=== PATIENT | female | born 1985 | race Caucasian/White ===

== ENCOUNTER 2025-06-21 11:12 | Inpatient (IN) | payer MEDICAID, SELFPAY ==
[2025-06-21] VITALS (12 sets, daily range): BP systolic 111–150; BP diastolic 72–96; PULSE 92–114; RESP 12–38; TEMP 36.7–37.1; O2SAT 90–100; BMI 32.1
--- NOTE | 2025-06-21 11:15 | PC.NURSE ---
SOB, UNABLE TO SPEAK IN FULL SENTENCES. HX OF PULMONARY HTN AND CHF. 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
--- NOTE | 2025-06-21 11:56 | EKG_ITS ---
[facility] Test Date: 2025-06-21 Pat Name: BELKIS COOK Department: Room: - Gender: Female Access Spec: : [id number] Requested By: Thomas Shine Order Number: [id number] Reading MD: Thomas Shine Measurements Intervals [place] Rate: 114 P: 82 [place]: 153 QRS: 108 QRSD: 109 T: 39 QT: 340 QTc: 470 Interpretive Statements SINUS TACHYCARDIA RIGHT ATRIAL ENLARGEMENT [0.3mV P-WAVE] POSSIBLE LEFT ATRIAL ENLARGEMENT [-0.1mV P-WAVE IN V1/V2] INCOMPLETE RIGHT BUNDLE BRANCH BLOCK [90+ ms QRS DURATION, TERMINAL R IN V1/V2, 40+ ms S IN I/aVL/V4/V5/V6] RIGHT VENTRICULAR HYPERTROPHY [SOME/ALL OF: PROMINENT R IN V1, LATE TRANSITION, RAD, CHASE, SSS] ST DEVIATION AND MODERATE T-WAVE ABNORMALITY, CONSIDER ANTEROLATERAL ISCHEMIA [-0.1+ mV T-WAVE IN V3-V6] Compared to ECG 06/12/2023 10:33:33 T-wave abnormality now present Possible ischemia now present Sinus rhythm no longer present ST (T wave) deviation no longer present /store/S0/[id number]/[id number].pdf
--- NOTE | 2025-06-21 11:56 | XR_ITS ---
EXAMINATION: AP chest single view TECHNIQUE: AP portable semiupright chest single view Date and time: June 21, 2025, 1240 hours, comparison June 12, 2023 INDICATIONS: Chest pain shortness of breath 4 weeks. FINDINGS: Significant pneumonia in the right lower lung zone Mild enlargement cardiac contour Central pulmonary arteries appear prominent Moderate osteopenia IMPRESSION: Right lower lung zone pneumonia Suspicious for pulmonary artery hypertension
--- NOTE | 2025-06-21 11:57 | PD.EDRME ---
Rapid Medical Screening Exam RME Arrival date/time: 06/21/25 11:12 40-year-old female with a history of CHF, pulmonary hypertension, presents to the emergency room with a chief complaint of shortness of breath and difficulty breathing x 3 days I have greeted and performed a focused initial assessment of this patient. A comprehensive ED assessment and evaluation of the patient, analysis of all test results, and completion of the medical decision making process will be conducted by additional ED providers. Chief Complaint: Shortness of Breath/Dyspnea Time Seen by Provider: 06/21/25 11:36 Vital signs reviewed by provider: Yes Exam: Strong and regular rhythm S1 and S2 GCS 15 Diminished lung sounds bilaterally Clinical Impression: Community-acquired pneumonia/CHF exacerbation/URI
[2025-06-21] MEDS: ALBUTEROL/IPRATROPIUM (Duoneb) RT SOL 3 ML NEBU INH ×2 (12:31→22:03)
[2025-06-21] MEDS: FUROSEMIDE INJ 10 MG/ML 4ML VIAL 40 MG IVP ×2 (12:48→21:22)
[2025-06-21] MEDS: DOXYCYCLINE INJ 100 MG in SODIUM CHLORIDE 0.9% (POP) 100 ML IV ×2 (13:00→21:22)
[2025-06-21] MEDS: cefTRIAXone 2 GM in SODIUM CHLORIDE 0.9% (Popper) 50 ML IV (13:00)
[2025-06-21 13:06] LABS: Basophils # (Auto) 0.0 Thou/mm3 (0.0-0.2); Basophils % (Auto) 0 % (0-2.5); Eosinophils # (Auto) 0.4 Thou/mm3 (0.0-0.5); Eosinophils % (Auto) 5 % (0-10); Hematocrit 39.2 % (36.0-46.0); Hemoglobin 13.2 g/dL (12.0-16.0); Immature Granulocytes Auto 0.03 Thou/mm3 (0.00-0.00); Lymphocytes # (Auto) 1.9 Thou/mm3 (1.0-4.8); Lymphocytes % (Auto) 21 % (10-50); Mean Corpuscular HGB Conc 33.7 g/dl (31.0-37.0); Mean Corpuscular Hemoglobin 32.2 pg (25.0-35.0); Mean Corpuscular Volume 96 fL (80-100); Monocytes # (Auto) 0.7 Thou/mm3 (0.0-0.8); Monocytes % (Auto) 7 % (0-12); Neutrophils # (Auto) 6.1 Thou/mm3 (1.8-7.7); Neutrophils % (Auto) 67 % (37-80); Nucleated Red Blood Cell # 0.00 Thou/mm3 (0.00-0.00); Nucleated Red Blood Cell % 0 /100 WBC (0); Platelet Count 168 Thou/mm3 (140-440); RDW Standard Deviation 48.7 fL (36.4-46.3); Red Blood Count 4.10 Miln/mm3 (4.00-5.20); White Blood Count 9.2 Thou/mm3 (3.6-11.0)
[2025-06-21 13:26] LABS: INR 1.0 (0.9-1.3); Partial Thromboplastin Time 26.6 Seconds (22.0-36.0); Prothrombin Time 10.8 Seconds (9.0-12.2)
[2025-06-21 13:34] LABS: B-Type Natriuretic Peptide 402 pg/mL (0-100)
[2025-06-21 13:35] LABS: Alanine Aminotransferase 12 U/L (10-49); Albumin, Serum 4.4 gm/dL (3.5-5.0); Albumin/Globulin Ratio 1.7 (1.2-2.2); Alkaline Phosphatase 56 U/L (46-116); Anion Gap 12 (7-16); Aspartate Amino Transferase 16 U/L (0-34); BUN/Creatinine Ratio 10 Ratio (12-20); Bilirubin,Total 0.3 mg/dL (0.3-1.2); Blood Urea Nitrogen 12 mg/dL (9-23); Calcium 9.3 mg/dL (8.3-10.6); Calcium (Corrected) 9.3 mg/dL (8.5-10.1); Carbon Dioxide 27.4 mMol/L (20.0-31.0); Chloride 107 mMol/L (98-107); Creatinine (Component) 1.2 mg/dL (0.6-1.3); Free T4 (Free Thyroxine) 1.22 ng/dL (0.89-1.76); Globulin 2.6 gm/dL (2.3-3.5); Glucose 101 mg/dL (74-106); Magnesium 1.8 mg/dL (1.6-2.6); Osmolality,Calculated 290 (275-295); Potassium 3.4 mMol/L (3.4-5.1); Sodium 146 mMol/L (136-145); Thyroid Stimulating Hormone 0.75 uIU/mL (0.55-4.78); Total Protein 7.0 gm/dL (5.7-8.2); eGFR 58 See Note
[2025-06-21 13:36] LABS: Troponin I 0.227 ng/mL (0.0-0.045)
[2025-06-21 13:42] LABS: Collection Type, Urine Clean Catch
[2025-06-21 13:55] LABS: Bacteria,Urine Rare; Bilirubin,Urine Negative (Negative); Blood,Urine 1+ (Negative); Clarity,Urine Clear (Clear/Hazy); Color,Urine Yellow (Lt Yel-Yel); Culture Indicated,Urine Not Indicated; Glucose, Urine Negative (Negative); Ketones,Urine Negative (Negative); Leukocyte Esterase,Urine Negative (Negative); Nitrite,Urine Negative (Negative); PH,Urine 6.0 (5.0-7.0); Protein,Urine Negative (Neg - Trace); RBC,Urine 1 /hpf (0-3); Specific Gravity,Urine 1.022 (1.001-1.035); Squamous Epithelial Cell,Urine 5 /hpf (0-5); Urobilinogen,Urine 2.0 mg/dL (0.0-1.0); WBC,Urine 2 /hpf (0-5)
[2025-06-21 14:07] LABS: Amphetamine/Methamp Scrn,U Positive (Negative); Barbiturate Screen,Urine Negative (Negative); Benzodiazepines Screen,Urine Negative (Negative); Benzoylecgonine Screen, Ur Negative (Negative); Fentanyl Screen,Urine Negative (Negative); Opiate Screen,Urine Negative (Negative); THC Screen,Urine Negative (Negative)
--- NOTE | 2025-06-21 14:19 | EDNOTE_ITS ---
ED SOB =RME/HPI General Chief Complaint: Shortness of Breath/Dyspnea Stated Complaint: SOB Time Seen by Provider: 06/21/25 11:36 Arrival date/time: 06/21/25 11:12 Limitations: no limitations RME / HPI RME / HPI Narrative: 06/21/25 11:12 40-year-old female with a history of CHF, pulmonary hypertension, presents to the emergency room with a chief complaint of shortness of breath and difficulty breathing x 3 days I have greeted and performed a focused initial assessment of this patient. A comprehensive ED assessment and evaluation of the patient, analysis of all test results, and completion of the medical decision making process will be conducted by additional ED providers. DR. WAHL MAIN ED EVALUATION: 40 year old female with history of asthma, CHF, TN, pulmonary hypertension, anemia, use of supplemental oxygen at 3-4L presents to the ED for evaluation of shortness of breath beginning 4 days ago and worsening this morning. Described feeling she is not getting enough air that is not improved with use of oxygen at home. Accompanied by cough producing yellow phlegm. Otherwise denies fevers, chills, chest pain, abdominal pain. No sick contacts. Social hx: Admits to smoking cigarettes, states she quit 2 months ago though has had a few cigs here and there . +meth and cocaine use last used 2 months ago. Exam: Strong and regular rhythm S1 and S2 GCS 15 Diminished lung sounds bilaterally Impression: Community-acquired pneumonia/CHF exacerbation/URI Related Data Home Medications ?Medication ?Instructions ?Recorded ?Confirmed ambrisentan 10 mg tablet 10 mg PO QDAY 06/22/2206/22 tadalafil (pulm. hypertension) 20 40 mg PO QDAY 06/22/22 mg tablet (pulmonary hypertension) Allergies Allergy/AdvReac Type Severity Reaction Status Date / Time promethazine (From Phenergan) Allergy Verified 06/21/25 11:15 propoxyphene (From Allergy Verified 06/21/25 11:15 Darvocet-N) Review of Systems Review of Systems Systems Reviewed: All systems reviewed, normal except as documented Past Medical History Past Medical History CARDIAC: Positive Cardiac Disorders (chf) and Congestive Heart Failure RESPIRATORY: Positive Chronic Obstructive Pulmonary Disease (COPD), Asthma and Smoking Exposure HEMATOLOGIC: Positive Anemia Social History SMOKING STATUS: Former smoker SECOND HAND EXPOSURE: Yes SUBSTANCE USE: does not use ED Exam General Limitations: Present no limitations General appearance: Present alert Head Head exam: Present atraumatic Eye Eye exam: Present normal appearance, PERRL and EOMI ENT ENT exam: Present normal exam, normal oropharynx and mucous membranes moist Neck Neck exam: Present normal inspection, full ROM and trachea midline Chest Chest inspection: Present normal inspection and symmetric chest wall rise Respiratory Respiratory exam: Present other (Expiratory and inspiratory wheezing, no crackles) Cardiovascular Cardiovascular exam: Present regular rate, normal rhythm and normal heart sounds Abdominal Exam Abdominal exam: Present soft and normal bowel sounds Extremities Exam Extremities exam: Present normal inspection and full ROM Back Exam Back exam: Present normal inspection and full ROM Neurological Exam Neurological exam: Present alert, oriented X3 and CN II-XII intact Psychiatric Psychiatric exam: Present normal affect and normal mood Skin Skin exam: Present warm, dry, intact and normal color Course Quality Measures none Orders Category Date Time Status Admit to Inpatient Status Routine Admission 06/21/25 16:29 Active Patient Condition Routine Admission 06/21/25 16:29 Ordered Aspiration precautions NOW Care 06/21/25 16:30 Active COVID-19 Screening Questionnaire NOW Care 06/21/25 14:[address] Screening NOW Care 06/21/25 16:36 Active Continuous Pulse Oximetry NOW Care 06/21/25 16:29 Completed Decision to Admit X1 Care 06/21/25 14:45 Completed EKG (ED ONLY) *Do not use* NOW Care 06/21/25 11:56 Completed IV [Insert IV] NOW Care 06/21/25 12:31 Active May take PO meds w/sips of H2O NEEDED Care 06/21/25 16:39 Active Miscellaneous Nursing Order NOW Care 06/21/25 16:29 Active NPO NOW Care 06/21/25 16:30 Active Neuro Check Q4H Care 06/21/25 16:29 Active Notify provider NEEDED Care 06/21/25 16:29 Active Obtain weight daily Care 06/21/25 16:30 Active Strict Intake and Output Routine Care 06/21/25 16:30 Ordered Urinary Catheter QS Care 06/21/25 16:29 Active Consult to Cardiology Stat Cons 06/21/25 16:35 Ordered Diet NPO (NOW) Diet 06/21/25 16:30 Active CA echo doppler complete Routine Exams 06/21/25 16:[address] angio chest Stat Exams 06/21/25 16:36 Ordered EKG (ED Only) Stat Exams 06/21/25 11:56 Draft XR chest 1V portable Stat Exams 06/21/25 11:56 Completed B-Type Natriuretic Peptide Stat Lab 06/21/25 12:29 Completed Blood Culture (Lab) Stat Lab 06/21/25 13:10 Received CBC AM DRAW Lab 06/22/25 05:00 Ordered CBC AM DRAW Lab 06/23/25 05:00 Ordered CBC AM DRAW Lab 06/24/25 05:00 Ordered CBC AM DRAW Lab 06/25/25 05:00 Ordered CBC AM DRAW Lab 06/26/25 05:00 Ordered CBC AM DRAW Lab 06/27/25 05:00 Ordered CBC AM DRAW Lab 06/28/25 05:00 Ordered CBC Stat Lab 06/21/25 12:29 Completed CMP [Comprehensive Metabolic Panel] AM DRAW Lab 06/22/25 05:00 Ordered CMP [Comprehensive Metabolic Panel] AM DRAW Lab 06/23/25 05:00 Ordered CMP [Comprehensive Metabolic Panel] AM DRAW Lab 06/24/25 05:00 Ordered CMP [Comprehensive Metabolic Panel] AM DRAW Lab 06/25/25 05:00 Ordered CMP [Comprehensive Metabolic Panel] AM DRAW Lab 06/26/25 05:00 Ordered CMP [Comprehensive Metabolic Panel] AM DRAW Lab 06/27/25 05:00 Ordered CMP [Comprehensive Metabolic Panel] AM DRAW Lab 06/28/25 05:00 Ordered COVID-19 Antigen (In-House) Stat Lab 06/21/25 15:45 Completed Comprehensive Metabolic Panel Stat Lab 06/21/25 12:29 Completed D-Dimer Stat Lab 06/21/25 16:37 Ordered Drug Screen,Urine Stat Lab 06/21/25 13:10 Completed Free T4 (Free Thyroxine) Stat Lab 06/21/25 12:29 Completed HCG Qualitative,Urine Stat Lab 06/21/25 16:48 Received HCG,Qualitative Serum Stat Lab 06/21/25 16:36 Ordered MRSA Nasal Screen Stat Lab 06/21/25 16:34 Ordered Magnesium AM DRAW Lab 06/22/25 05:00 Ordered Magnesium AM DRAW Lab 06/23/25 05:00 Ordered Magnesium AM DRAW Lab 06/24/25 05:00 Ordered Magnesium AM DRAW Lab 06/25/25 05:00 Ordered Magnesium AM DRAW Lab 06/26/25 05:00 Ordered Magnesium AM DRAW Lab 06/27/25 05:00 Ordered Magnesium AM DRAW Lab 06/28/25 05:00 Ordered Magnesium Stat Lab 06/21/25 12:29 Completed Partial Thromboplastin Time Stat Lab 06/21/25 12:29 Completed Phosphorous AM DRAW Lab 06/22/25 05:00 Ordered Phosphorous AM DRAW Lab 06/23/25 05:00 Ordered Phosphorous AM DRAW Lab 06/24/25 05:00 Ordered Phosphorous AM DRAW Lab 06/25/25 05:00 Ordered Phosphorous AM DRAW Lab 06/26/25 05:00 Ordered Phosphorous AM DRAW Lab 06/27/25 05:00 Ordered Phosphorous AM DRAW Lab 06/28/25 05:00 Ordered Prothrombin Time with INR Stat Lab 06/21/25 12:29 Completed Sputum Culture and Gram Stain Routine Lab 06/21/25 16:33 Ordered TSH [Thyroid Stimulating Hormone] Stat Lab 06/21/25 12:29 Completed Troponin I Q6H Lab 06/21/25 16:36 Ordered Troponin I Q6H Lab 06/21/25 22:45 Ordered Troponin I Q6H Lab 06/22/25 04:45 Ordered Troponin I Stat Lab 06/21/25 12:29 Completed Urinalysis, C/S if Indicated Stat Lab 06/21/25 13:10 Completed Acetaminophen Tab [Tylenol Tab] Med 06/21/25 16:29 Active 650 mg PO Q6H PRN Albuterol/Ipratr Rt Lindsay [Duoneb Rt Lindsay] Med 06/21/25 16:29 Active 3 ml INH Q2HR PRN Albuterol/Ipratr Rt Lindsay [Duoneb Rt Lindsay] Med 06/21/25 19:00 Active 3 ml INH Q4HRRT Albuterol/Ipratr Rt Lindsay [Duoneb Rt Lindsay] Med 06/21/25 12:27 Discontinued 3 ml INH X1 ONE Doxycycline Inj [Vibramycin Inj] 100 mg Med 06/21/25 21:00 Active Sodium Chloride 0.9% (Pop) [NS 0.9% mini bag] 100 ml IV BID Doxycycline Inj [Vibramycin Inj] 100 mg Med 06/21/25 12:27 Discontinued Sodium Chloride 0.9% (Pop) [NS 0.9% mini bag] 100 ml IV X1 Furosemide Inj [Lasix Inj] Med 06/22/25 09:00 Active 40 mg IVP QDAY Furosemide Inj [Lasix Inj] Med 06/21/25 12:27 Discontinued 40 mg IVP X1 ONE Heparin Inj Med 06/21/25 22:00 Active 5,000 unit SC Q8HR MethylPREDNISolone. [SoluMEDROL Inj] Med 06/22/25 09:00 Active 40 mg IV QDAY MethylPREDNISolone. [SoluMEDROL Inj] Med 06/21/25 12:27 Discontinued 80 mg IV X1 ONE Ondansetron Inj [Zofran Inj] Med 06/21/25 16:29 Active 4 mg IVP Q6H PRN Pantoprazole Inj [Protonix Inj] Med 06/22/25 09:00 Active 40 mg IVP QDAY Senna [Senokot] Med 06/22/25 09:00 Active 1 tab PO QDAY Sildenafil Cit [Revatio] Med 06/21/25 13:00 Active 20 mg PO QID Sodium Chloride Rt Lindsay 10% [NS Rt Lindsay 10%] Med 06/21/25 16:29 Discontinued 5 ml INH X1 ONE cefTRIAXone [Rocephin] 2 gm Med 06/21/25 12:28 Discontinued SODIUM CHLORIDE 0.9% (Popper) [Ns 0.9% (P)] 50 ml IV X1 cefTRIAXone/D5w 1gm IV premix [Rocephin/D5w 1gm IV Med 06/21/25 16:34 Active premix] 1 gm in 50 ml IV QDAY Code Status Routine Oth 06/21/25 16:29 Ordered BiPAP / CPAP NEEDED RT 06/21/25 12:27 Active Sputum Induction PRN RT 06/21/25 16:45 Ordered Vital Signs Vital signs: Vital Signs Temperature 98.8 F 06/21/25 12:09 Pulse Rate 114 H 06/21/25 12:09 Respiratory Rate 38 H 06/21/25 12:09 Blood Pressure 111/72 06/21/25 12:09 Pulse Oximetry (%) 90 L 06/21/25 12:09 Oxygen Delivery Method Nasal Cannula 06/21/25 12:09 Oxygen Flow Rate 3 06/21/25 12:09 Shortness of Breath / Dyspnea MDM Narrative MDM Narrative:: Alyson Thomas am scribing for and in the presence of Dr. Wahl. 40 year old female with history of asthma, CHF, TN, pulmonary hypertension, anemia, use of supplemental oxygen at 3-4L presents to the ED for evaluation of shortness of breath beginning 4 days ago and worsening this morning. Assessment: Pulmonary hypertension EKG showed right heart strain patter, right bundle branch block, right axis deviation. Plan: Vasodilator with nitro Diuretic BiPAP with inline duo neb treatment Steroids Antivbiotics Amlodipine 1255p: I spoke with pharmacy and they recommend 20mg Sildenafil QID I reviewed the chest xray and shows right lower lung pneumonia. I reviewed labs and troponin is elevated at 0.227 though is chronically elevated. Will admit patient for right lower lobe pneumonia, COPD exacerbation, hypertension, CHF, NSTEMI Patient data External records reviewed:: [facility] previous records Clinical information provided by:: patient Social determinants that could affect healthcare access:: substance use Patient has the following chronic illnesses:: asthma, CHF, [place], pulmonary hypertension, anemia, use of supplemental oxygen at 3-4L How is presenting disease/condition affected by chronic disease/condition?: exacerbated by Evaluation data The following diagnostics were reviewed and interpreted by me:: lab results, radiology exam(s) and EKG tracing(s) Lab and/or radiology exams considered but not ordered:: None Interpretation Summary: Ordering Physician: Thomas Lawson Date of Service: 06/21/25 Procedure(s): XR chest 1V portable Accession Number(s): [id number] cc: Thomas Lawson; Ray Cleaning MD~ EXAMINATION: AP chest single view TECHNIQUE: AP portable semiupright chest single view Date and time: June 21, 2025, 1240 hours, comparison June 12, 2023 INDICATIONS: Chest pain shortness of breath 4 weeks. FINDINGS: Significant pneumonia in the right lower lung zone Mild enlargement cardiac contour Central pulmonary arteries appear prominent Moderate osteopenia IMPRESSION: Right lower lung zone pneumonia Suspicious for pulmonary artery hypertension Dictated By: Ray Cleaning MD Signed By: <Electronically signed by Ray Cleaning MD in OV> 06/21/25 1350 Medications / Prescriptions Medications or Prescriptions considered but not ordered:: None Medication administrations:: Medication Administration History Acetaminophen (Acetaminophen 325 Mg Tablet) 650 mg PO Q6H PRN PRN Reason: Fever >100.4, Pain 1-3 Stop: 07/21/25 16:28 Albuterol/Ipratropium (Albuterol/Ipratropium (Duoneb) Rt Lindsay 3 Ml Nebu) 3 ml INH Q4HRRT JOHNATHAN Stop: 07/21/25 18:59 Albuterol/Ipratropium (Albuterol/Ipratropium (Duoneb) Rt Lindsay 3 Ml Nebu) 3 ml INH Q2HR PRN PRN Reason: SHORTNESS OF BREATH OR WHEEZE Stop: 07/21/25 16:28 Furosemide (Furosemide Inj 10 Mg/Ml 4ml Vial) 40 mg IVP QDAY JOHNATHAN Stop: 07/22/25 08:59 Heparin Sodium (Porcine) (Heparin Sod Inj 5000 Unit/Ml Vial) 5,000 unit SC Q8HR JOHNATHAN Stop: 07/05/25 21:59 Ceftriaxone Sodium/Dextrose (Rocephin/D5w 1gm Iv Premix) 1 gm in 50 mls @ 100 mls/hr IV QDAY JOHNATHAN Stop: 06/28/25 16:33 Last Admin: 06/21/25 16:38 Dose: Not Given Documented By: BY Non-Admin Reason: Cancelled by Provider Doxycycline Hyclate 100 mg/ (Sodium Chloride) 100 mls @ 100 mls/hr IV BID JOHNATHAN Stop: 06/28/25 20:59 Methylprednisolone Sodium Succinate (Methylprednisolone Sod Succ 40 Mg/Ml Vial) 40 mg IV QDAY JOHNATHAN Stop: 06/29/25 08:59 Ondansetron HCl (Ondansetron Inj 2 Mg/Ml Inj 2 Ml) 4 mg IVP Q6H PRN; Protocol PRN Reason: NAUSEA OR VOMITING Stop: 07/21/25 16:28 Pantoprazole Sodium (Pantoprazole Inj 40 Mg Vial) 40 mg IVP QDAY JOHNATHAN Stop: 07/22/25 08:59 Sennosides (Senna Tablet) 1 tab PO QDAY [facility]; Protocol Stop: 07/22/25 08:59 Sildenafil Citrate (Sildenafil Cit 20 Mg Tablet (Non-Formulary)) 20 mg PO QID JOHNATHAN Stop: 07/21/25 12:59 Last Admin: 06/21/25 13:49 Dose: 20 mg Documented By: BY Discontinued Medications Albuterol/Ipratropium (Albuterol/Ipratropium (Duoneb) Rt Lindsay 3 Ml Nebu) 3 ml INH X1 ONE Stop: 06/21/25 12:28 Last Admin: 06/21/25 12:31 Dose: 3 ml Documented By: DU Furosemide (Furosemide Inj 10 Mg/Ml 4ml Vial) 40 mg IVP X1 ONE Stop: 06/21/25 12:28 Last Admin: 06/21/25 12:48 Dose: 40 mg Documented By: BY Ceftriaxone Sodium 2 gm/ (Sodium Chloride) 50 mls @ 100 mls/hr IV X1 ONE Stop: 06/21/25 12:57 Last Infusion: 06/21/25 13:58 Dose: Infused Documented By: Admin: 06/21/25 13:00 Dose: 100 mls/hr Documented By: BY Doxycycline Hyclate 100 mg/ (Sodium Chloride) 100 mls @ 100 mls/hr IV X1 ONE Stop: 06/21/25 13:26 Last Infusion: 06/21/25 14:57 Dose: Infused Documented By: Admin: 06/21/25 13:00 Dose: 100 mls/hr Documented By: BY Methylprednisolone Sodium Succinate (Methylprednisolone Sod Succ 40 Mg/Ml Vial) 80 mg IV X1 ONE Stop: 06/21/25 12:28 Last Admin: 06/21/25 12:52 Dose: 80 mg Documented By: BY Sodium Chloride (Sodium Chloride Rt 10% 15 Ml Nebu) 5 ml INH X1 ONE Stop: 06/21/25 16:30 See above Consultations Consultation(s) initiated? (list below): Yes Consultation #1 (Physician, Specialty, Details): See MDM Diagnosis Shortness of Breath Differential Diagnosis: acute exacerbation of chronic obstructive airways disease, congestive heart failure, community acquired pneumonia and asthma with exacerbation Most likely diagnosis given after review of the tests above:: right lower lobe pneumonia, COPD exacerbation, hypertension, CHF, NSTEMI Admission Indicated Admission indicated?: indicated Admission Request Was there a request for admission?: Yes Admission Attestation Admission request attestation: Discussed case with [] from Hospitalist service regarding admission. Discussed patients ED course, exam findings, labs, and radiology results. The Hospitalist [agrees,declines] to accept the patient for admission. Disposition Plan Disposition Plan: Admit Discharge Plan Plan Patient Disposition: Admit Acute Care w/in Hospital Prescriptions/Referrals Prescriptions/Med Rec: No Action ambrisentan 10 mg tablet 10 mg PO QDAY tadalafil (pulm. hypertension) 20 mg tablet 40 mg PO QDAY Referrals: No Primary/Family,Physician [Primary Care Provider] - In 1 week Problem List Clinical Impression: Right lower lobe pneumonia, COPD exacerbation, CHF (congestive heart failure), Non-ST elevation TN (NSTEMI) Patient/Caregiver Discharge Instructions Print Language: Maori Stand Alone Forms: Lorie Award Info., Patient Portal Info Letter
--- NOTE | 2025-06-21 16:06 | PC.NURSE ---
Dr Aleman was at bedside and asked the patient if she wanted to be a full code, patient states no that she did not want compressions, stated when god says it time go ,its time to go , patient is alert gcs 15,
[2025-06-21 16:28] LABS: COVID-19 Antigen (In-House) Negative (Negative)
--- NOTE | 2025-06-21 16:33 | ECHO_ITS ---
Patient Info Name: Autumn Dillard Age: 40 years : 1985 Gender: Female Ht: 155 cm Wt: 77 kg BSA: 1.85 m2 BP: 107 / 62 mmHg HR: 84 bpm Exam Date: 06/23/2025 6:44 AM Admit Date: 06/21/2025 Site: [facility] Room Number: [id number] Patient Status: I Exam Type: CA echo doppler complete Tenter Frame Operator: Melissa Rabago Ordering Physician: Eduardo Bolaños Study Info Indications CHF - Primary Location: S2NX Left Ventricular Outflow Tract Name Value Normal LVOT 2D LVOT Diameter 1.8 cm LVOT Doppler LVOT Peak Velocity 81 cm/s LVOT Mean Gradient 1 mmHg LVOT VTI 14 cm LVOT VTI/AV VTI Ratio 0.6 LVOT Stroke Volume 36 ml Pulmonic Valve Name Value Normal PV Doppler PV Peak Velocity 97 cm/s Mitral Valve Name Value Normal MV Doppler MV Decel Moca 794 cm/s2 MV PHT 23 ms MV Area (PHT) 9.4 cm2 4.0-5.0 MV Diastolic Function MV E Peak Velocity 64 cm/s MV A Peak Velocity 75 cm/s MV E/A 0.9 MV Annular TDI MV Septal e' Velocity 3.6 cm/s MV E/e' (Septal) 17.9 MV Lateral e' Velocity 8.7 cm/s MV E/e' (Lateral) 7.4 MV e' Average 6.15 cm/s MV E/e' (Average) 12.7 Tricuspid Valve Name Value Normal TV Regurgitation Doppler TR Peak Velocity 318 cm/s Estimated PAP/RSVP RA Pressure 3 mmHg <=5 PA Systolic Pressure 43 mmHg <36 RV Systolic Pressure 43 mmHg <36 TV Annular TDI TV Lateral Inga s' Velocity 13.7 cm/s >=9.5 Aortic Valve Name Value Normal AV 2D/MM AV Cusp Sep (MM) 2.0 cm AV Doppler AV Peak Velocity 116 cm/s AV Mean Gradient 3 mmHg AV VTI 23 cm AV Area (Cont Eq VTI) 1.6 cm2 >=3.0 AV Area (Cont Eq Santos) 1.8 cm2 AV DI (Santos) 0.70 AV Regurgitation 2D LVOT Area 2.5 cm2 Ventricles Name Value Normal LV Dimensions 2D/MM IVS Diastolic Thickness (2D) 1.4 cm 0.6-0.9 LVID Diastole (2D) 3.9 cm 3.8-5.2 LVIW Diastolic Thickness (2D) 0.8 cm 0.6-0.9 LVID Systole (2D) 2.8 cm 2.2-3.5 LVOT Diameter 1.8 cm LV Mass (2D Cubed) 140.09 g 67.00-162.00 LV Mass Index (2D Cubed) 76 g/m2 43-95 Relative Wall Thickness (2D) 0.41 <=0.42 IVS/LVIW Diastolic Thickness (2D) 1.75 0.00-1.50 LV Fractional Shortening/Ejection Fraction 2D/MM LV Fractional Shortening (2D) 28 % 27-45 LV EF (2D Demetriusjennifer) 55 % RV Dimensions 2D/MM TV Lateral Inga s' Velocity 13.7 cm/s >=9.5 Atria Name Value Normal LA Dimensions LA Volume (4C A-L) 20 ml LA Volume (BP A-L) 31 ml Left Ventricle Left ventricular chamber dimension is decreased. Left ventricular systolic function is normal with visually estimated ejection fraction of 60-65%. There is mild concentric hypertrophy noted in the left ventricle. Left ventricular segmental wall motion is normal. There is grade I diastolic dysfunction in the left ventricle. Right Ventricle Right ventricular chamber dimension is severely enlarged. Right ventricular systolic function is normal. Left Atrium Left atrial chamber dimension is normal. Right Atrium Right atrial chamber dimension is severely enlarged. Aortic Valve The aortic valve is trileaflet. There is no aortic valve sclerosis. There is no aortic valve stenosis with a peak velocity of 116 cm/s, mean gradient of 3 mmHg, and aortic valve area of 1.6 cm2. There is trace aortic valve regurgitation. Pulmonic Valve The pulmonic valve is normal. There is no pulmonic valve stenosis. There is trace pulmonic regurgitation. Mitral Valve The mitral valve has normal leaflets. There is no mitral valve stenosis. There is trace mitral valve regurgitation. Tricuspid Valve The tricuspid valve leaflets are normal. There is no tricuspid valve stenosis. There is mild tricuspid valve regurgitation. Pulmonary hypertension, estimated pulmonary arterial systolic pressure is 43 mmHg and systemic blood pressure of 107 mmHg in systole. Pericardium/Pleural The pericardium appears normal. There is no pericardial effusion. No pleural effusion visualized. Inferior Vena Cava Normal inferior vena cava with >50% collapse upon inspiration consistent with normal right atrial pressure, 3 mmHg. Aorta The aortic measurements are indexed to age and body surface area. The aortic root at the sinus of Valsalva is not well visualized. The prox ascending aorta is not well visualized. Summary 1. Left ventricle size is decreased and systolic function is normal. Estimated ejection fraction is 60-65%. There is grade I diastolic dysfunction. There is mild concentric hypertrophy noted. 2. Right ventricle chamber size is severely enlarged and systolic function is normal. Estimated RVSP is 56 mmHg and could be under estimated. Atleast moderate PAH. D shaped LV during systole indicating pressure overload. Septum normal in diastole. 3. There is no tricuspid valve stenosis and mild to moderate regurgitation. 4. The left atrium is normal. The right atrium is severely enlarged. 5. There is trace AI, MR and PI. No pericardial effusion. Report Signatures Finalized by Nish Watts on 06/23/2025 07:35 PM
--- NOTE | 2025-06-21 16:36 | XR_ITS ---
Examination: CTA chest with intravenous contrast 2-D reconstructions 3-D reconstructions, vascular Date and time of exam: June 21, 2025, 1812 hours INDICATIONS: Chest pain shortness of breath today CTDI: vol (mGy) 12.6 DLP: (mGycm) 278 Technique: Multiple axial sections of the thorax have been obtained. 3 mm slice thickness, from below the hemidiaphragms to above the apices of the lungs. Mediastinal and lung density settings have been obtained. 2-D sagittal and coronal reconstructions. 3-D angiographic renderings, 3-D volume renderings, 3D post processing, vascular maximum intensity projections obtained. Contrast administered is 100 cc Isovue 370. Low dose protocols were performed. One or more of the following dose reduction techniques were used; automated exposure control, adjustment of the mA and/or KV according to patient size, use of iterative reconstruction technique. Findings: No thoracic aortic aneurysmal dilatation Pulmonary artery hypertension, main pulmonary artery segment 39 mm No pulmonary artery emboli Large retrocardiac gastric hernia No mediastinal lymphadenopathy No pneumonia or pulmonary edema No visualized liver or splenic lesion No hydronephrosis Gallstones IMPRESSION: Negative for thoracic aortic aneurysmal dilatation or dissection Pulmonary artery emboli Negative for pulmonary artery emboli Cholelithiasis
--- NOTE | 2025-06-21 16:45 | ESHP_ITS ---
Documentation for date of: 06/21/25 [facility] History of Present Illness History of present illness: Ms. Wahl is a 40-year-old female with past medical history of pulmonary hypertension, asthma/COPD and methamphetamine use who presented to [facility] emergency department with a chief complaint of shortness of breath and difficulty breathing for the last 3 days. Patient on BiPAP on evaluation limited history, most history obtained from chart review. Patient at bedside complains of heart disease, COPD reports using inhaler and supplemental oxygen. Patient admits to drug use. Patient is anxious that when she can be discharged. ED course: ED vitals: Vitals on presentation blood pressure 111/72, heart rate 114, respiratory rate 38, temp 98.8, O2 sat 90 on 3 L nasal cannula, patient started on BiPAP after. ED labs: On presentation WBC 9.2 hemoglobin 13.2, MCV 96 MCH 32.2 MCH platelet 168. INR 1.0 APTT 26.6: Sodium 146 potassium 3.4 chloride 107 anion gap 12 BUN 12 creatinine 1.2 GFR 58 calcium 9.3 magnesium 1.8 liver panel unremarkable troponin elevated at 0.227, BNP 402 TSH free T4 within normal limits: Urinalysis positive for 1+ blood n shows rare bacteria urine tox positive for methamphetamine, COVID-negative ED imaging: Chest x-ray shows right lower lung pneumonia, suspicious for pulmonary arterial hypertension EKG shows sinus tachycardia, right atrial enlargement and incomplete right bundle branch block. ED treatment: Patient was given breathing treatment 3 mL inhalational x 1, 40 mg IV Lasix, methylprednisolone 80 mg IV x 1 ceftriaxone 2 g x 1 doxycycline 100 mg x 1 and sildenafil 20 mg. Patient started on BiPAP Review of Systems Review of Systems ROS Unobtainable: other (Patient on BiPAP) Past Medical History Past Medical History Comments PMH COMMENT: PMH: As above PSHx: Appendectomy, tubal ligation and I&D's Allergies: Promethazine, propoxyphene Social history: -Smoking: Chronic smoker, reports has cigarettes here and there, -Alcohol Use: Denies -Illicit Drug Use: Positive for methamphetamine and cocaine use Family History: No pertinent history. Exam Vital Signs Temp Pulse Resp BP Pulse Ox O2 Del Method O2 Flow Rate 98.8 F 102 H 16 125/94 H 93 L BiPAP 3 06/21/25 12:09 06/21/25 15:40 06/21/25 15:40 06/21/25 15:40 06/21/25 15:40 06/21/25 15:40 06/21/25 12:09 FiO2 45 06/21/25 12:31 Narrative Exam Physical Exam General: Awake and in no acute distress. Nods to questions, currently on BiPAP. HEENT: Normocephalic, atraumatic, mucous membranes moist. Heart: Regular rate and rhythm, no murmurs. Lungs: Mild bilateral wheezing Abdomen: Soft, nondistended, nontender, positive bowel sounds. ?No guarding or rebound tenderness. Neurologic: Alert and oriented x3, no gross neurological deficit, and patient able to move all 4 extremities. Extremities: 2+ bilateral lower extremity edema Skin: No rash or ecchymoses. Results: Labs 06/22/25 05:15 06/22/25 05:15 Labs: Short CBC 06/21/25 Range/Units 12:29 WBC 9.2 (3.6-11.0) Thou/mm3 Hgb 13.2 (12.0-16.0) g/dL Hct 39.2 (36.0-46.0) % Plt Count 168 (140-440) Thou/mm3 BMP 06/21/25 12:29 Sodium 146 H Potassium 3.4 Chloride 107 Carbon Dioxide 27.4 BUN 12 Creatinine 1.2 Glucose 101 Calcium 9.3 Cardiac Enzymes 06/21/25 Range/Units 12:29 Troponin I 0.227 H* (0.0-0.045) ng/mL Liver Function 06/21/25 Range/Units 12:29 Total Bilirubin 0.3 (0.3-1.2) mg/dL AST 16 (0-34) U/L ALT 12 (10-49) U/L Alkaline Phosphatase 56 (46-116) U/L Albumin 4.4 (3.5-5.0) gm/dL Urine 06/21/25 Range/Units 13:10 Urine Color Yellow (Lt Yel-Yel) Urine Clarity Clear (Clear/Hazy) Urine pH 6.0 (5.0-7.0) Ur Specific [place] 1.022 (1.001-1.035) Urine Protein Negative (Neg - Trace) Urine Glucose (UA) Negative (Negative) Quality Measures Quality Measures VTE prophylaxis Medications Home Medications and Allergies Home Medications ?Medication ?Instructions ?Recorded ?Confirmed ?Type ambrisentan 10 mg tablet 10 mg PO QDAY 06/22/2206/21 History tadalafil (pulm. hypertension) 20 40 mg PO QDAY 06/21/25 History mg tablet (pulmonary hypertension) albuterol sulfate 90 mcg/actuation 2 puff inhalation Q 6H PRN 06/21/25 06/21/25 History aerosol inhaler shortness of breath or wheez ing furosemide 40 mg tablet (Lasix) 40 mg PO QDAY 06/21/25 06/21/25 History Allergies Allergy/AdvReac Type Severity Reaction Status Date / Time promethazine (From Phenergan) Allergy Verified 06/21/25 11:15 propoxyphene (From Allergy Verified 06/21/25 11:15 Darvocet-N) Visit Medications Acetaminophen (Acetaminophen 325 Mg Tablet) 650 mg PO Q6H PRN PRN Reason: Fever >100.4, Pain 1-3 Stop: 07/21/25 16:28 Albuterol/Ipratropium (Albuterol/Ipratropium (Duoneb) Rt Lindsay 3 Ml Nebu) 3 ml INH Q4HRRT JOHNATHAN Stop: 07/21/25 18:59 Albuterol/Ipratropium (Albuterol/Ipratropium (Duoneb) Rt Lindsay 3 Ml Nebu) 3 ml INH Q2HR PRN PRN Reason: SHORTNESS OF BREATH OR WHEEZE Stop: 07/21/25 16:28 Furosemide (Furosemide Inj 10 Mg/Ml 4ml Vial) 40 mg IVP QDAY [facility] Stop: 07/22/25 08:59 Heparin Sodium (Porcine) (Heparin Sod Inj 5000 Unit/Ml Vial) 5,000 unit SC Q8HR JOHNATHAN Stop: 07/05/25 21:59 Ceftriaxone Sodium/Dextrose (Rocephin/D5w 1gm Iv Premix) 1 gm in 50 mls @ 100 mls/hr IV QDAY JOHNATHAN Stop: 06/28/25 16:33 Last Admin: 06/21/25 16:38 Dose: Not Given Doxycycline Hyclate 100 mg/ (Sodium Chloride) 100 mls @ 100 mls/hr IV BID [facility] Stop: 06/28/25 20:59 Methylprednisolone Sodium Succinate (Methylprednisolone Sod Succ 40 Mg/Ml Vial) 40 mg IV QDAY [facility] Stop: 06/29/25 08:59 Ondansetron HCl (Ondansetron Inj 2 Mg/Ml Inj 2 Ml) 4 mg IVP Q6H PRN; Protocol PRN Reason: NAUSEA OR VOMITING Stop: 07/21/25 16:28 Pantoprazole Sodium (Pantoprazole Inj 40 Mg Vial) 40 mg IVP QDAY [facility] Stop: 07/22/25 08:59 Sennosides (Senna Tablet) 1 tab PO QDAY JOHNATHAN; Protocol Stop: 07/22/25 08:59 Sildenafil Citrate (Sildenafil Cit 20 Mg Tablet (Non-Formulary)) 20 mg PO QID JOHNATHAN Stop: 07/21/25 12:59 Last Admin: 06/21/25 13:49 Dose: 20 mg Discontinued Medications Albuterol/Ipratropium (Albuterol/Ipratropium (Duoneb) Rt Lindsay 3 Ml Nebu) 3 ml INH X1 ONE Stop: 06/21/25 12:28 Last Admin: 06/21/25 12:31 Dose: 3 ml Furosemide (Furosemide Inj 10 Mg/Ml 4ml Vial) 40 mg IVP X1 ONE Stop: 06/21/25 12:28 Last Admin: 06/21/25 12:48 Dose: 40 mg Ceftriaxone Sodium 2 gm/ (Sodium Chloride) 50 mls @ 100 mls/hr IV X1 ONE Stop: 06/21/25 12:57 Last Infusion: 06/21/25 13:58 Dose: Infused Doxycycline Hyclate 100 mg/ (Sodium Chloride) 100 mls @ 100 mls/hr IV X1 ONE Stop: 06/21/25 13:26 Last Infusion: 06/21/25 14:57 Dose: Infused Methylprednisolone Sodium Succinate (Methylprednisolone Sod Succ 40 Mg/Ml Vial) 80 mg IV X1 ONE Stop: 06/21/25 12:28 Last Admin: 06/21/25 12:52 Dose: 80 mg Sodium Chloride (Sodium Chloride Rt 10% 15 Ml Nebu) 5 ml INH X1 ONE Stop: 06/21/25 16:30 Assessment & Plan Plan Assessment and plan: Summary: Ms. Wahl is a 40-year-old female with past medical history of pulmonary hypertension, asthma/COPD and methamphetamine use who presented to [facility] emergency department with a chief complaint of shortness of breath and difficulty breathing for the last 3 days. Patient admitted for CHF exacerbation, COPD exacerbation and pneumonia. #Acute on chronic hypoxic respiratory failure #Severe pulmonary hypertension, CHF exacerbation #COPD exacerbation #Community-acquired pneumonia 40-year-old female with past medical history of pulmonary hypertension, COPD, methamphetamine use presented with shortness of breath. Past echo shows RVSP 75, with D sign and decreased LV size, patient reports she follows up with a hand stamper in [place]. Patient on BiPAP currently, limited history. Troponin on presentation elevated at 0.227, down trended down to 0.196, BNP 402 Does have bilateral wheezing, on and off smoker stopped a month ago, uses inhalers at home. Chest x-ray does show possible right lower lung pneumonia Patient received sildenafil in ED, Lasix 40 IV x 1 Plan: - DuoNebs every 4 hours, DuoNebs every 2 hours as needed, methylprednisolone 40 mg daily - IV ceftriaxone and doxycycline (06/21- - follow sputum culture, MRSA nasal screen, blood culture - Started on Lasix 40 twice daily, echocardiogram ordered, continue BiPAP - Ordered CTA to rule out PE - Cardiology consulted, appreciate recommendations - Continue sildenafil 20 g 3 times daily #ALTHEA Baseline creatinine 0.8, creatinine on presentation 1.2. Patient will need CTA. Suspected cardiorenal syndrome - Continue Lasix for now - Follow renal function in a.m. #NSTEMI type II versus type I Troponin downtrended already likely NSTEMI type II, EKG did show right atrial enlargement and sinus tachycardia no acute ST-T changes #Methamphetamine dependence Urine drug screen positive for methamphetamine, advised to avoid drugs DVT prophylaxis: Heparin every 8 hours GI prophylaxis: IV Protonix Diet: N.p.o. except meds Lines: Peripheral IV Code status: DNR/DNI?confirmed with nurse at bedside Case discussed with Attending Physician Dr. Arian Bolaños MD Internal Medicine PGY-2 Disclaimer: This note was dictated by speech recognition. Minor errors in hearing consultant may be present due to voice recognition software. Attending Provider Attestation/Addendum 40 yo female with CHf, COPD, PAH, methamphetamine use was admitted for acute onset of dyspnea at rest worsening over the last few days making it harder to perform her daily activity. She is symptomatic at rest. She required bipap for hypoxia in the ER. Her breathing improved with dose of IV Lasix. Her heart monitor showed sinus tachycardia. S/he has type II NSTEMI. She has mild chest pain, She will require inpatient treatment. Will need cardiology consult. Discussed with Dr. Bolaños - PGY 2.. Willl need to convince her to stay in the hospital as she said she is feeling better and would like to stay home. She said her last name is adore Fernandez after she . Risk for non compliance discusse.l
[2025-06-21 17:08] LABS: HCG Qualitative,Urine Negative
[2025-06-21 17:33] LABS: HCG,Qualitative Serum Negative
[2025-06-21 17:47] LABS: Troponin I 0.196 ng/mL (0.0-0.045)
[2025-06-21 18:09] LABS: D-Dimer < 250 ng/mL (<600)
[2025-06-21 19:29] LABS: Influenza A Ag Negative; Influenza B Ag Negative
--- NOTE | 2025-06-21 20:07 | PRELIM_ITS ---
CT angiogram of the chest with intravenous contrast (axial sections with sagittal and coronal reformats) June 21, 2025 1801 hours Clinical History: Rule Out PE Technique:Helical axial sections with sagittal and coronal reformats of the chest were obtained with intravenous contrast. Iterative reconstruction technique was employed to reduce patient radiation exposure. 3D/MIP reconstructed images were also provided. No prior study is available for comparison. Findings: There is no filling defect within the pulmonary artery divisions to suggest pulmonary thromboembolism. The main pulmonary arteries are dilated with the pulmonary trunk measuring 2 cm, of concern for pulmonary arterial hypertension.The mediastinum demonstrates no evidence of mass or lymphadenopathy. The thoracic aorta is unremarkable. There is no pericardial effusion. The lungs are clear. No evidence of pleural effusion or pneumothorax. The osseous structures are unremarkable. There is a large hiatal hernia. Impression: No CT evidence of pulmonary thromboembolism or other acute intrathoracic pathology. Report Electronically Signed By: Melody Meredith 06/21/2025 8:07:20 PM [EST]
--- NOTE | 2025-06-21 20:14 | PC.NURSE ---
pt is npo but dr castañeda ok with giving patient ice ships. pt given ice chips no new orders at this time
[2025-06-21] MEDS: HEPARIN SOD INJ 5000 UNIT/ML VIAL SC (21:24)
[2025-06-22] VITALS (10 sets, daily range): BP systolic 115–156; BP diastolic 67–102; PULSE 94–117; RESP 19–30; TEMP 36–37.1; O2SAT 93–99; BMI 30.9
[2025-06-22] MEDS: MELATONIN 3 MG TABLET 6 MG PO (00:19)
[2025-06-22] MEDS: ALBUTEROL/IPRATROPIUM (Duoneb) RT SOL 3 ML NEBU INH ×3 (02:10→15:07)
[2025-06-22] MEDS: HEPARIN SOD INJ 5000 UNIT/ML VIAL SC ×2 (05:26→17:22)
[2025-06-22 06:07] LABS: Basophils # (Auto) 0.0 Thou/mm3 (0.0-0.2); Basophils % (Auto) 0 % (0-2.5); Eosinophils # (Auto) 0.0 Thou/mm3 (0.0-0.5); Eosinophils % (Auto) 0 % (0-10); Hematocrit 38.2 % (36.0-46.0); Hemoglobin 12.8 g/dL (12.0-16.0); Immature Granulocytes Auto 0.03 Thou/mm3 (0.00-0.00); Lymphocytes # (Auto) 1.4 Thou/mm3 (1.0-4.8); Lymphocytes % (Auto) 15 % (10-50); Mean Corpuscular HGB Conc 33.5 g/dl (31.0-37.0); Mean Corpuscular Hemoglobin 31.3 pg (25.0-35.0); Mean Corpuscular Volume 93 fL (80-100); Monocytes # (Auto) 0.5 Thou/mm3 (0.0-0.8); Monocytes % (Auto) 6 % (0-12); Neutrophils # (Auto) 7.0 Thou/mm3 (1.8-7.7); Neutrophils % (Auto) 79 % (37-80); Nucleated Red Blood Cell # 0.00 Thou/mm3 (0.00-0.00); Nucleated Red Blood Cell % 0 /100 WBC (0); Platelet Count 153 Thou/mm3 (140-440); RDW Standard Deviation 47.8 fL (36.4-46.3); Red Blood Count 4.09 Miln/mm3 (4.00-5.20); White Blood Count 9.0 Thou/mm3 (3.6-11.0)
[2025-06-22 06:31] LABS: Alanine Aminotransferase 11 U/L (10-49); Albumin, Serum 4.5 gm/dL (3.5-5.0); Albumin/Globulin Ratio 1.7 (1.2-2.2); Alkaline Phosphatase 55 U/L (46-116); Anion Gap 13 (7-16); Aspartate Amino Transferase 14 U/L (0-34); BUN/Creatinine Ratio 15 Ratio (12-20); Bilirubin,Total 0.5 mg/dL (0.3-1.2); Blood Urea Nitrogen 16 mg/dL (9-23); Calcium 9.3 mg/dL (8.3-10.6); Calcium (Corrected) 9.3 mg/dL (8.5-10.1); Carbon Dioxide 27.8 mMol/L (20.0-31.0); Chloride 104 mMol/L (98-107); Creatinine (Component) 1.1 mg/dL (0.6-1.3); Estimated Creatinine Clearance 63.2 mL/min (>60); Globulin 2.7 gm/dL (2.3-3.5); Glucose 107 mg/dL (74-106); Magnesium 1.6 mg/dL (1.6-2.6); Osmolality,Calculated 289 (275-295); Phosphorous 5.0 mg/dL (2.4-5.1); Potassium 3.4 mMol/L (3.4-5.1); Sodium 145 mMol/L (136-145); Total Protein 7.2 gm/dL (5.7-8.2); eGFR > 60 See Note
[2025-06-22] MEDS: DOXYCYCLINE INJ 100 MG in SODIUM CHLORIDE 0.9% (POP) 100 ML IV (08:19)
[2025-06-22] MEDS: cefTRIAXone/D5w 1gm IV premix 1 GM/50 ML BAG IV (08:20)
[2025-06-22] MEDS: Magnesium Sulfate 4 GM Ivpb 4 GM/50 ML BAG IV (09:18)
--- NOTE | 2025-06-22 10:01 | PD.RESCONSUL ---
HPI Data of Consult Requesting Physician: Dominic Don MD Admitting Provider: Dominic Don MD Attending Provider: Dominic Don MD Primary Care Provider: Physician No Primary/Family Consult Narrative History of present illness: 40-year-old female with past medical history of pulmonary hypertension, asthma/COPD, on home oxygen, history of methamphetamine abuse, [facility] with chief complaints of shortness of breath. Patient stated that symptoms started about 3 days ago, and was progressively getting worse. Patient stated that she was out to [place] [facility] with her boyfriend/ when she suddenly developed dyspnea, and was having trouble to catch her breath. Patient denied any nausea, palpitation, chest pain, or any other symptoms. Patient has a chronic longstanding COPD, with more than 35-year pack smoking history, has severe pulmonary hypertension grade 3 in the setting of underlying COPD, and using oxygen at home. Patient stated that about a month ago she has not been feeling herself, recently had some kind of upper respiratory infection, however symptoms at 1 point subsided and she never followed up with doctor. Patient is taking Lasix along with sildenafil at home for pulmonary hypertension. On daily basis denies any chest pain, shortness of breath, palpitation, or any other associated symptoms. On presentation patient found to be tachypneic, tachycardic, and saturating low 90s, troponin was found to be elevated and patient was admitted for acute hypoxic respiratory failure secondary due to COPD exacerbation in the setting of underlying pneumonia as well as non-STEMI demand ischemia due to right heart failure. ED course: ED vitals: Vitals on presentation blood pressure 111/72, heart rate 114, respiratory rate 38, temp 98.8, O2 sat 90 on 3 L nasal cannula, patient started on BiPAP after. ED labs: On presentation WBC 9.2 hemoglobin 13.2, MCV 96 MCH 32.2 MCH platelet 168. INR 1.0 APTT 26.6: Sodium 146 potassium 3.4 chloride 107 anion gap 12 BUN 12 creatinine 1.2 GFR 58 calcium 9.3 magnesium 1.8 liver panel unremarkable troponin elevated at 0.227, BNP 402 TSH free T4 within normal limits: Urinalysis positive for 1+ blood n shows rare bacteria urine tox positive for methamphetamine, COVID-negative ED imaging: Chest x-ray shows right lower lung pneumonia, suspicious for pulmonary arterial hypertension EKG shows sinus tachycardia, right atrial enlargement and incomplete right bundle branch block. ED treatment: Patient was given breathing treatment 3 mL inhalational x 1, 40 mg IV Lasix, methylprednisolone 80 mg IV x 1 ceftriaxone 2 g x 1 doxycycline 100 mg x 1 and sildenafil 20 mg. Patient started on BiPAP Past medical history as above Past surgical history appendectomy, eye surgery Allergies promethazine, propoxyphene Medication Lasix 40 mg daily, sildenafil, Ambrisentan, albuterol, home oxygen as needed Family history patient denies any heart disease in the family. Negative for hypertension, diabetes and heart attack Social history patient smoking since age of 14, 1 pack/day, last cigarette per patient was about a year ago. Patient also admits using street drugs including methamphetamine, IV drug, cocaine, however stated that about a year she has been sober, UTOX is positive for amphetamine cc:: cc: Dominic Don MD Review of Systems Review of Systems Systems Reviewed: All systems reviewed, normal except as documented Exam Vital Signs Temp Pulse Resp BP Pulse Ox O2 Del Method O2 Flow Rate 97.0 F 98 19 127/90 H 98 Room Air 3 06/22/25 08:00 06/22/25 08:00 06/22/25 08:00 06/22/25 08:00 06/22/25 08:00 06/22/25 08:00 06/22/25 07:26 FiO2 45 06/21/25 14:36 Narrative Exam GENERAL: no acute distress, AAO x3, well nourished. HEENT: Head AT/ NC. Mucous membranes moist. PERRL. NECK: Supple, no lymphadenopathy, no carotid bruits. CARDIOVASCULAR:tachicardic. Normal S1/S2, No m/r/g. Non pitting edema of bilateral LEs. RESPIRATORY: CTAB. No wheezing, rhonchi, crackles. GASTROINTESTINAL: Abdomen soft, non tender no palpable masses. Bowel sounds present in all 4 quadrants. MUSCULOSKELETAL:? No cyanosis or edema, no visible joint swelling. NEUROLOGICAL: CN II-XII grossly intact. No focal deficits. Sensation intact, symmetric. PSYCHIATRIC: Awake and alert, not agitated, normal mood and affect. INTEGUMENTARY: No obvious rashes, no jaundice, normal turgor. Results Labs 06/22/25 05:15 06/22/25 05:15 Labs: Short CBC 06/21/25 06/22/25 Range/Units 12:29 05:15 WBC 9.2 9.0 (3.6-11.0) Thou/mm3 Hgb 13.2 12.8 (12.0-16.0) g/dL Hct 39.2 38.2 (36.0-46.0) % Plt Count 168 153 (140-440) Thou/mm3 BMP 06/21/25 06/22/25 12:29 05:15 Sodium 146 H 145 Potassium 3.4 3.4 Chloride 107 104 Carbon Dioxide 27.4 27.8 BUN 12 16 Creatinine 1.2 1.1 Glucose 101 107 H Calcium 9.3 9.3 Cardiac Enzymes 06/21/25 06/21/25 Range/Units 12:29 12:29 Troponin I 0.227 H* 0.196 H* (0.0-0.045) ng/mL Liver Function 06/21/25 06/22/25 Range/Units 12:29 05:15 Total Bilirubin 0.3 0.5 (0.3-1.2) mg/dL AST 16 14 (0-34) U/L ALT 12 11 (10-49) U/L Alkaline Phosphatase 56 55 (46-116) U/L Albumin 4.4 4.5 (3.5-5.0) gm/dL Urine 06/21/25 Range/Units 13:10 Urine Color Yellow (Lt Yel-Yel) Urine Clarity Clear (Clear/Hazy) Urine pH 6.0 (5.0-7.0) Ur Specific [place] 1.022 (1.001-1.035) Urine Protein Negative (Neg - Trace) Urine Glucose (UA) Negative (Negative) Quality Measures Quality Measures VTE prophylaxis Medications Home Medications and Allergies Home Medications ?Medication ?Instructions ?Recorded ?Confirmed ?Type ambrisentan 10 mg tablet 10 mg PO QDAY 06/22/22 06/21/25 History tadalafil (pulm. hypertension) 20 40 mg PO QDAY 06/22/22 06/21/25 History mg tablet (pulmonary hypertension) albuterol sulfate 90 mcg/actuation 2 puff inhalation Q6H PRN 06/21/25 06/21/25 History aerosol inhaler shortness of breath or wheezing furosemide 40 mg tablet (Lasix) 40 mg PO QDAY 06/21/25 06/21/25 History Allergies Allergy/AdvReac Type Severity Reaction Status Date / Time promethazine (From Phenergan) Allergy Verified 06/21/25 11:15 propoxyphene (From Allergy Verified 06/21/25 11:15 Darvocet-N) Visit Medications Acetaminophen (Acetaminophen 325 Mg Tablet) 650 mg PO Q6H PRN PRN Reason: Fever >100.4, Pain 1-3 Stop: 07/21/25 16:28 Albuterol/Ipratropium (Albuterol/Ipratropium (Duoneb) Rt Lindsay 3 Ml Nebu) 3 ml INH Q4HRRT JOHNATHAN Stop: 07/21/25 18:59 Last Admin: 06/22/25 07:25 Dose: 3 ml Albuterol/Ipratropium (Albuterol/Ipratropium (Duoneb) Rt Lindsay 3 Ml Nebu) 3 ml INH Q2HR PRN PRN Reason: SHORTNESS OF BREATH OR WHEEZE Stop: 07/21/25 16:28 Furosemide (Furosemide Inj 10 Mg/Ml 4ml Vial) 40 mg IVP BID JOHNATHAN Stop: 07/21/25 20:59 Last Admin: 06/22/25 08:26 Dose: Not Given Heparin Sodium (Porcine) (Heparin Sod Inj 5000 Unit/Ml Vial) 5,000 unit SC Q8HR JOHNATHAN Stop: 07/05/25 21:59 Last Admin: 06/22/25 05:26 Dose: 5,000 unit Ceftriaxone Sodium/Dextrose (Rocephin/D5w 1gm Iv Premix) 1 gm in 50 mls @ 100 mls/hr IV QDAY JOHNATHAN Stop: 06/28/25 16:33 Last Admin: 06/22/25 08:20 Dose: 100 mls/hr Doxycycline Hyclate 100 mg/ (Sodium Chloride) 100 mls @ 100 mls/hr IV BID JOHNATHAN Stop: 06/28/25 20:59 Last Admin: 06/22/25 08:19 Dose: 100 mls/hr Magnesium Sulfate (Magnesium Sulfate Ivpb) 4 gm in 50 mls @ 12.5 mls/hr IV X1 ONE Stop: 06/22/25 13:02 Last Admin: 06/22/25 09:18 Dose: 12.5 mls/hr Methylprednisolone Sodium Succinate (Methylprednisolone Sod Succ 40 Mg/Ml Vial) 40 mg IV QDAY [facility] Stop: 06/29/25 08:59 Last Admin: 06/22/25 08:19 Dose: 40 mg Ondansetron HCl (Ondansetron Inj 2 Mg/Ml Inj 2 Ml) 4 mg IVP Q6H PRN; Protocol PRN Reason: NAUSEA OR VOMITING Stop: 07/21/25 16:28 Pantoprazole Sodium (Pantoprazole Inj 40 Mg Vial) 40 mg IVP QDAY [facility] Stop: 07/22/25 08:59 Last Admin: 06/22/25 08:19 Dose: 40 mg Potassium Chloride (Potassium Chloride 20 Meq Tabcr) 20 meq PO X1 ONE Stop: 06/22/25 12:01 Sennosides (Senna Tablet) 1 tab PO QDAY [facility]; Protocol Stop: 07/22/25 08:59 Last Admin: 06/22/25 08:20 Dose: 1 tab Sildenafil Citrate (Sildenafil Cit 20 Mg Tablet (Non-Formulary)) 20 mg PO TID [facility] Stop: 07/21/25 21:59 Last Admin: 06/22/25 06:17 Dose: Not Given Discontinued Medications Albuterol/Ipratropium (Albuterol/Ipratropium (Duoneb) Rt Lindsay 3 Ml Nebu) 3 ml INH X1 ONE Stop: 06/21/25 12:28 Last Admin: 06/21/25 12:31 Dose: 3 ml Furosemide (Furosemide Inj 10 Mg/Ml 4ml Vial) 40 mg IVP X1 ONE Stop: 06/21/25 12:28 Last Admin: 06/21/25 12:48 Dose: 40 mg Furosemide (Furosemide Inj 10 Mg/Ml 4ml Vial) 40 mg IVP QDAY [facility] Stop: 07/22/25 08:59 Ceftriaxone Sodium 2 gm/ (Sodium Chloride) 50 mls @ 100 mls/hr IV X1 ONE Stop: 06/21/25 12:57 Last Infusion: 06/21/25 13:58 Dose: Infused Doxycycline Hyclate 100 mg/ (Sodium Chloride) 100 mls @ 100 mls/hr IV X1 ONE Stop: 06/21/25 13:26 Last Infusion: 06/21/25 14:57 Dose: Infused Lorazepam (Lorazepam 0.5 Mg Tablet) 0.5 mg PO X1 ONE Stop: 06/21/25 22:36 Last Admin: 06/21/25 23:01 Dose: 0.5 mg Melatonin (Melatonin 3 Mg Tablet) 6 mg PO HS ONE Stop: 06/22/25 00:03 Last Admin: 06/22/25 00:19 Dose: 6 mg Methylprednisolone Sodium Succinate (Methylprednisolone Sod Succ 40 Mg/Ml Vial) 80 mg IV X1 ONE Stop: 06/21/25 12:28 Last Admin: 06/21/25 12:52 Dose: 80 mg Potassium Chloride (Potassium Chloride 20 Meq Tabcr) 20 meq PO BIDWM JOHNATHAN Stop: 06/23/25 17:29 Potassium Chloride (Potassium Chloride 20 Meq Tabcr) 40 meq PO X1 ONE Stop: 06/22/25 09:23 Sildenafil Citrate (Sildenafil Cit 20 Mg Tablet (Non-Formulary)) 20 mg PO QID JOHNATHAN Stop: 07/21/25 12:59 Last Admin: 06/21/25 18:36 Dose: 20 mg Sodium Chloride (Sodium Chloride Rt 10% 15 Ml Nebu) 5 ml INH X1 ONE Stop: 06/21/25 16:30 Last Admin: 06/21/25 19:08 Dose: Not Given Assessment & Plan Plan 40-year-old female with past medical history of pulmonary hypertension, COPD , hx of 35 pack smoking hxs, history of methamphetamine use was admitted for acute on chronic hypoxic respiratory failure secondary due to CHF exacerbation versus COPD exacerbation in the setting of pneumonia as well as Non STEMI. Cardiology was consulted for further recommendations 1. Acute on chronic hypoxic respiratory failure 2. Severe pulmonary hypertension grade III/type III 3. Right heart failure 4. Eyj-SUAWX-almuow type II demand ischemia 5. COPD exacerbation 6. Methamphetamine use 7. Pneumonia. 8. ALTHEA ECHO:2021 CONCLUSIONS Indication: Pulmonary HTN Severe PAH with estinated RVSP is 75 mmHg, including RAP. Evidence of RV pressure and volume overload noted ( D shaped LV in systole and diastole). Severely dilated RV with normal function. LV small size with normal function. Estimated EF is 65-70%. Severely dilated right atrium. Moderate to Severe TR. Mild MR. Acute hypoxic respiratory failure failure likely multifactorial due to combination of the COPD exacerbation, pneumonia and pulmonary hypertension. Patient has a history of severe pulmonary hypertension seen on echo in 2021, RVSP of 75%, right ventricular strain, decreased left ventricular size this may contribute to her ongoing hypoxic respiratory failure. Labs revealed BNP of 402, suggesting heart failure exacerbation. Troponin is slightly elevated initially 0.227, now 0.196. Given the clinical picture it is more likely a non-STEMI type II demand ischemia in the setting of hypoxia and respiratory failure. There were no acute ST changes on EKG and patient presentation does not suggest MO. Patient also has a history of methamphetamine use, which can exacerbate both the pulmonary hypertension and cardiac issues. CTA was negative for PE Recommendations Continue underlying COPD exacerbation treatment, pneumonia treatment with antibiotics, support with oxygen Sildenafil 20 mg 3 times daily continue as per current regimen to manage pulmonary hypertension Switched from Lasix 40 mg twice daily to 40 mg daily, manage fluid overload, patient refused today's morning dose of Lasix. Fluid restriction, daily weight, strict AMBER's Troponin already down trended, no EKG changes, continue to monitor on telemetry Order echo to assess cardiac function Extensive counseled patient regarding side effects of methamphetamine dependence The patient will require close follow-up with a supervisor accounts receivable for ongoing management of her severe pulmonary hypertension. Referral to a PH Center is recommended for specialized care and treatment of her pulmonary hypertension. Additionally, the patient must completely stop amphetamine use to prevent further exacerbation of her condition It is crucial for the patient to be compliant with her prescribed medications. During hospitalization, the patient has been refusing some medications, including Lasix, which could compromise her treatment and recovery. Oxygen support should continue as indicated, and respiratory function should be regularly monitored to assess the patient?s oxygenation status. Patient care was discussed with attending physician Dr. Myrna Mcrae MD PGY-3 I have carefully reviewed this document. Due to imperfections in the voice software, there could be grammatical errors including phonetic/typographic errors. This in no way compromises the medical care the patient is receiving Attending Provider Attestation/Addendum I have personally seen and examined the patient separately on the above date of service and discussed the plan of care with the resident. I reviewed the resident Dr. Anny Pickett consultation progress note and agree with the resident findings and plan in the note above and have also edited the documentation to reflect my findings and plan. Patient apparently does follow-up with pulmonary hypertension clinic in [place] but does not remember the doctor's name and apparently started B. Patient recommended to continue with her sildenafil and follow-up with PAH clinic and eye doctor regularly. Patient counseled extensively about meth abuse she says that she did relapse and actually quit for the past year or so. Discussed with the patient the importance to continue to quit methamphetamine smoking or any kind of alcohol abuse for her to be eligible for any kind of advanced heart therapies given her severe PAH. Continue IV diuresis for now. Strict output, daily weights and 2 g sodium diet. Echocardiogram ordered and will follow-up with results. Nish Watts M.D. Interventional Cardiology
--- NOTE | 2025-06-22 14:54 | ESPR_ITS ---
Documentation for date of: 06/22/25 Subjective Subjective Interval history: Patient was seen and examined at bedside. No acute events took place overnight. Patient denies shortness of breath and difficulty breathing. Patient was on oxy mask at night and nasal cannula in the morning currently weaned to room air. Patient states that she uses supplemental oxygen 3 L via NC at home. patient remained afebrile. Patient admits to drug use. Patient is anxious that when she can be discharged. Pending blood cultures, and MRSA screening results Exam Vital Signs Temp Pulse Resp BP Pulse Ox O2 Del Method O2 Flow Rate 97.2 F 105 H 20 139/97 H 93 L Room Air 3 06/22/25 12:00 06/22/25 12:00 06/22/25 12:00 06/22/25 12:00 06/22/25 12:00 06/22/25 12:00 06/22/25 07:26 FiO2 45 06/21/25 14:36 Narrative Exam General: Awake and in no acute distress. Nods to questions, currently on BiPAP. HEENT: Normocephalic, atraumatic, mucous membranes moist. Heart: Regular rate and rhythm, no murmurs. Lungs: Mild bilateral wheezing Abdomen: Soft, nondistended, nontender, positive bowel sounds. ?No guarding or rebound tenderness. Neurologic: Alert and oriented x3, no gross neurological deficit, and patient able to move all 4 extremities. Extremities: 2+ bilateral lower extremity edema Skin: No rash or ecchymoses. Objective Labs 06/22/25 05:15 06/22/25 05:15 Labs: Laboratory Results - last 24 hr 06/21/25 06/21/25 06/21/25 12:29 15:45 16:48 WBC RBC Hgb Hct MCV MCH MCHC RDW Std Deviation Plt Count Neut % (Auto) Lymph % (Auto) [place] % (Auto) Eos % (Auto) Baso % (Auto) Neut # (Auto) Lymph # (Auto) [place] # (Auto) Eos # (Auto) Baso # (Auto) Immature Gran # (Auto) Absolute Nucleated RBC Immature Gran % Nucleated RBC % D-Dimer < 250 Sodium Potassium Chloride Carbon Dioxide Anion Gap BUN Creatinine Estim Creat Clear Calc eGFR BUN/Creatinine Ratio Glucose Calculated Osmolality Calcium Corrected Calcium Phosphorus Magnesium Total Bilirubin AST ALT Alkaline Phosphatase Troponin I 0.196 H* Total Protein Albumin Globulin Albumin/Globulin Ratio HCG, Qual Negative Urine HCG, Qual Negative Influenza A (Rapid) Influenza B (Rapid) SARS-CoV-2 Ag (Rapid) Negative 06/21/25 06/22/25 18:44 05:15 WBC 9.0 RBC 4.09 Hgb 12.8 Hct 38.2 MCV 93 MCH 31.3 MCHC 33.5 RDW Std Deviation 47.8 H Plt Count 153 Neut % (Auto) 79 Lymph % (Auto) 15 [place] % (Auto) 6 Eos % (Auto) 0 Baso % (Auto) 0 Neut # (Auto) 7.0 Lymph # (Auto) 1.4 [place] # (Auto) 0.5 Eos # (Auto) 0.0 Baso # (Auto) 0.0 Immature Gran # (Auto) 0.03 H Absolute Nucleated RBC 0.00 Immature Gran % 0 Nucleated RBC % 0 D-Dimer Sodium 145 Potassium 3.4 Chloride 104 Carbon Dioxide 27.8 Anion Gap 13 BUN 16 Creatinine 1.1 Estim Creat Clear Calc 63.2 eGFR > 60 BUN/Creatinine Ratio 15 Glucose 107 H Calculated Osmolality 289 Calcium 9.3 Corrected Calcium 9.3 Phosphorus 5.0 Magnesium 1.6 Total Bilirubin 0.5 AST 14 ALT 11 Alkaline Phosphatase 55 Troponin I Total Protein 7.2 Albumin 4.5 Globulin 2.7 Albumin/Globulin Ratio 1.7 HCG, Qual Urine HCG, Qual Influenza A (Rapid) Negative Influenza B (Rapid) Negative SARS-CoV-2 Ag (Rapid) Quality Measures Quality Measures VTE prophylaxis Assessment & Plan Assessment Current Active Medications: Generic Name Dose Route Start Last Admin Trade Name Freq PRN Reason Stop Dose Admin Acetaminophen 650 mg 06/21/25 16:29 Acetaminophen 325 Mg Tablet PO 07/21/25 16:28 Q6H PRN Fever >100.4, Pain 1-3 Albuterol/Ipratropium 3 ml 06/21/25 19:00 06/22/25 12:21 Albuterol/Ipratropium (Duoneb) Rt Lindsay 3 Ml Nebu INH 07/21/25 18:59 Not Given Q4HRRT JOHNATHAN Albuterol/Ipratropium 3 ml 06/21/25 16:29 Albuterol/Ipratropium (Duoneb) Rt Lindsay 3 Ml Nebu INH 07/21/25 16:28 Q2HR PRN SHORTNESS OF BREATH OR WHEEZE Furosemide 40 mg 06/21/25 21:00 06/22/25 08:26 Furosemide Inj 10 Mg/Ml 4ml Vial IVP 07/21/25 20:59 Not Given BID JOHNATHAN Heparin Sodium (Porcine) 5,000 unit 06/22/25 17:30 Heparin Sod Inj 5000 Unit/Ml Vial SC 07/06/25 17:29 Q12HR JOHNATHAN Ondansetron HCl 4 mg 06/21/25 16:29 Ondansetron Inj 2 Mg/Ml Inj 2 Ml IVP 07/21/25 16:28 Q6H PRN NAUSEA OR VOMITING Protocol Pantoprazole Sodium 40 mg 06/22/25 09:00 06/22/25 08:19 Pantoprazole Inj 40 Mg Vial IVP 07/22/25 08:59 40 mg QDAY JOHNATHAN Administration Sennosides 1 tab 06/22/25 09:00 06/22/25 08:20 Senna Tablet PO 07/22/25 08:59 1 tab QDAY JOHNATHAN Administration Protocol Sildenafil Citrate 20 mg 06/21/25 22:00 06/22/25 14:08 Sildenafil Cit 20 Mg Tablet (Non-Formulary) PO 07/21/25 21:59 20 mg TID JOHNATHAN Administration Plan Assessment and plan: Summary: Ms. Wahl is a 40-year-old female with past medical history of pulmonary hypertension, asthma/COPD and methamphetamine use who presented to [facility] emergency department with a chief complaint of shortness of breath and difficulty breathing for the last 3 days. Patient admitted for CHF exacerbation, COPD exacerbation and pneumonia. #Acute on chronic hypoxic respiratory failure #Severe pulmonary hypertension, CHF exacerbation #COPD exacerbation, less likely #Community-acquired pneumonia 40-year-old female with past medical history of pulmonary hypertension, COPD, methamphetamine use presented with shortness of breath. Past echo shows RVSP 75, with D sign and decreased LV size, patient reports she follows up with a fringing machine operator in [place]. Patient on BiPAP currently, limited history. Troponin on presentation elevated at 0.227, down trended down to 0.196, BNP 402 Does have bilateral wheezing, on and off smoker stopped a month ago, uses inhalers at home. Chest x-ray does show possible right lower lung pneumonia Patient received sildenafil in ED, Lasix 40 IV x 1 Flu A & B negative. D-dimer negative (PE rule out). CTA negative for thoracic aortic aneurysmal dilatation or dissection, negative for pulmonary artery emboli. After discussion with team, discontinued methylprednisolone as patient's dyspnea is likely secondary to acute decompensation of chronic heart failure. Plan: - DuoNebs every 4 hours, DuoNebs every 2 hours as needed, - IV ceftriaxone and doxycycline (06/21- - follow sputum culture, MRSA nasal screen, blood culture - Switched from Lasix 40mg bid to once a day, echocardiogram ordered, continue BiPAP PRN - Ordered CTA to rule out PE - Cardiology consulted, appreciate recommendations - The patient will require close follow-up with a boat operator for ongoing management of her severe pulmonary hypertension. Referral to a PH Center is recommended for specialized care and treatment of her pulmonary hypertension. - Sildenafil 20 mg 3 times daily to manage pulmonary hypertension #ALTHEA Baseline creatinine 0.8, creatinine on presentation 1.2. Patient will need CTA. Suspected cardiorenal syndrome. - Continue Lasix for now - Follow renal function in a.m. #NSTEMI type II versus type I Troponin downtrended already likely NSTEMI type II, EKG did show right atrial enlargement and sinus tachycardia no acute ST-T changes #Methamphetamine dependence Urine drug screen positive for methamphetamine, advised to avoid drugs DVT prophylaxis: Heparin every 8 hours GI prophylaxis: IV Protonix Diet: cardiac Lines: Peripheral IV Code status: DNR/DNI?confirmed with nurse at bedside This case was discussed with my attending physician, Dr. Crawford, and senior resident, Dr soto. Even though this this note was carefully revised there may still be minor errors in records management specialist due to voice recognition software. Alyssa Mendenhall DO PGY I Attending Provider Attestation/Addendum I have discussed and was present for the essential components of the history, physical examination, diagnosis, and treatment plan with the resident. I agree with the patient's care as documented by the resident and amended herein by me. Everette Crawford DO. Although this document has been carefully reviewed, there may still be some phonetic and other typographical errors. These errors are purely grammatical due to imperfections in the software program and should not be construed in any way to compromise the substance of the patient's medical care during this visit. Patient seen and evaluated this AM. No acute events overnight, vital signs stable, patient afebrile in the AM. Patient on room air, SpO2 98%. I's and O's not recorded. Last troponin 0.196, initially did downtrend, this is a slight uptrend. Other significant labs include a hemoglobin 12.8, potassium 3.4, bicarb 28 and a creatinine which is down trended to 1.1. CTA was negative for PE and negative for pneumonia hence antibiotics discontinued today. Will continue Lasix 40 mg IV daily and sildenafil 20 mg p.o. 3 times daily for pulmonary arterial hypertension. Echocardiogram still pending, last echo in 2021 significant for an RVSP of 75 with severely dilated RV with normal function. EF was 65 to 70% at that time with a severely dilated right atrium with moderate to severe TR and mild MR. Cardiology is consulted, recommends close follow-up with pulmonology for severe pulmonary arterial hypertension, she also will stop her methamphetamine use which we explained to her today. Will continue to monitor closely while she is here, likely DC in 1 to 2 days pending echo read and final cardiology recommendations.
[2025-06-22] MEDS: IPRATROPIUM RT 0.5 MG/ 2.5 ML NEBU INH (20:29)
[2025-06-22] MEDS: LEVALBUTEROL RT 1.25 MG/0.5 ML NEBU INH (20:29)
[2025-06-23] VITALS (11 sets, daily range): BP systolic 97–124; BP diastolic 62–80; PULSE 88–115; RESP 12–25; TEMP 36.1–36.9; O2SAT 94–100; BMI 31.1
[2025-06-23] MEDS: IPRATROPIUM RT 0.5 MG/ 2.5 ML NEBU INH ×4 (00:47→19:06)
[2025-06-23] MEDS: LEVALBUTEROL RT 1.25 MG/0.5 ML NEBU INH ×4 (00:47→19:06)
[2025-06-23] MEDS: MELATONIN 3 MG TABLET 6 MG PO ×2 (02:13→21:15)
[2025-06-23] MEDS: FUROSEMIDE INJ 10 MG/ML 4ML VIAL 40 MG IVP (08:08)
[2025-06-23] MEDS: HEPARIN SOD INJ 5000 UNIT/ML VIAL SC ×2 (08:10→21:16)
--- NOTE | 2025-06-23 11:26 | ESPR_ITS ---
Documentation for date of: 06/23/25 Subjective Subjective Interval history: 40-year-old female with past medical history of pulmonary hypertension, asthma/COPD, on home oxygen, history of methamphetamine abuse, presented to the to [facility] on 06/21/2025 with chief complaints of shortness of breath. Patient stated that symptoms started about 3 days ago, and was progressively getting worse. Patient stated that she was out to [place] [facility] with her boyfriend/ when she suddenly developed dyspnea, and was having trouble to catch her breath. Patient denied any nausea, palpitation, chest pain, or any other symptoms. Patient has a chronic longstanding COPD, with more than 35-year pack smoking history, has severe pulmonary hypertension grade 3 in the setting of underlying COPD, and using oxygen at home. Patient stated that about a month ago she has not been feeling herself, recently had some kind of upper respiratory infection, however symptoms at 1 point subsided and she never followed up with doctor. Patient is taking Lasix along with sildenafil at home for pulmonary hypertension. On daily basis denies any chest pain, shortness of breath, palpitation, or any other associated symptoms. On presentation patient found to be tachypneic, tachycardic, and saturating low 90s, troponin was found to be elevated and patient was admitted for acute hypoxic respiratory failure secondary due to COPD exacerbation in the setting of underlying pneumonia as well as non-STEMI demand ischemia due to right heart failure. ED course: ED vitals: Vitals on presentation blood pressure 111/72, heart rate 114, respiratory rate 38, temp 98.8, O2 sat 90 on 3 L nasal cannula, patient started on BiPAP after. ED labs: On presentation WBC 9.2 hemoglobin 13.2, MCV 96 MCH 32.2 MCH platelet 168. INR 1.0 APTT 26.6: Sodium 146 potassium 3.4 chloride 107 anion gap 12 BUN 12 creatinine 1.2 GFR 58 calcium 9.3 magnesium 1.8 liver panel unremarkable troponin elevated at 0.227, BNP 402 TSH free T4 within normal limits: Urinalysis positive for 1+ blood n shows rare bacteria urine tox positive for methamphetamine, COVID-negative ED imaging: Chest x-ray shows right lower lung pneumonia, suspicious for pulmonary arterial hypertension EKG shows sinus tachycardia, right atrial enlargement and incomplete right bundle branch block. ED treatment: Patient was given breathing treatment 3 mL inhalational x 1, 40 mg IV Lasix, methylprednisolone 80 mg IV x 1 ceftriaxone 2 g x 1 doxycycline 100 mg x 1 and sildenafil 20 mg. Patient started on BiPAP Past medical history as above Past surgical history appendectomy, eye surgery Allergies promethazine, propoxyphene Medication Lasix 40 mg daily, sildenafil, Ambrisentan, albuterol, home oxygen as needed Family history patient denies any heart disease in the family. Negative for hypertension, diabetes and heart attack Social history patient smoking since age of 14, 1 pack/day, last cigarette per patient was about a year ago. Patient also admits using street drugs including methamphetamine, IV drug, cocaine, however stated that about a year she has been sober, UTOX is positive for amphetamine. 06/23/2025: Patient was seen and examined at bedside. She is doing well and denies any complaints of chest pain, palpitations, leg swelling. She endorses that her SOB is improving. Continue the same management and follow-up with the residue furnace operator for her pulmonary hypertension. Potassium 3.4, magnesium 1.6 on today labs. Overnight night fluid balance+840 ml. Exam Vital Signs Temp Pulse Resp BP Pulse Ox O2 Del Method O2 Flow Rate 97.0 F 88 19 115/80 94 L Nasal Cannula 2 06/23/25 08:00 06/23/25 08:08 06/23/25 08:00 06/23/25 08:08 06/23/25 08:00 06/23/25 08:00 06/23/25 08:00 FiO2 45 06/23/25 04:00 Objective Labs 06/23/25 15:41 06/23/25 15:41 Quality Measures Quality Measures VTE prophylaxis Assessment & Plan Assessment Current Active Medications: Generic Name Dose Route Start Last Admin Trade Name Freq PRN Reason Stop Dose Admin Acetaminophen 650 mg 06/21/25 16:29 Acetaminophen 325 Mg Tablet PO 07/21/25 16:28 Q6H PRN Fever >100.4, Pain 1-3 Albuterol/Ipratropium 3 ml 06/21/25 16:29 Albuterol/Ipratropium (Duoneb) Rt Lindsay 3 Ml Nebu INH 07/21/25 16:28 Q2HR PRN SHORTNESS OF BREATH OR WHEEZE Furosemide 40 mg 06/23/25 09:00 06/23/25 08:08 Furosemide Inj 10 Mg/Ml 4ml Vial IVP 07/23/25 08:59 40 mg QDAY JOHNATHAN Administration Heparin Sodium (Porcine) 5,000 unit 06/22/25 17:30 06/23/25 08:10 Heparin Sod Inj 5000 Unit/Ml Vial SC 07/06/25 17:29 5,000 unit Q12HR JOHNATHAN Administration Ipratropium [place] 0.5 mg 06/22/25 19:00 06/23/25 07:27 Ipratropium Rt 0.5 Mg/ 2.5 Ml Nebu INH 07/22/25 18:59 0.5 mg Q6HRRT JOHNATHAN Administration Levalbuterol HCl 1.25 mg 06/22/25 19:00 06/23/25 07:27 Levalbuterol Rt 1.25 Mg/0.5 Ml Nebu INH 07/22/25 18:59 1.25 mg Q6HRRT JOHNATHAN Administration Ondansetron HCl 4 mg 06/21/25 16:29 Ondansetron Inj 2 Mg/Ml Inj 2 Ml IVP 07/21/25 16:28 Q6H PRN NAUSEA OR VOMITING Protocol Pantoprazole Sodium 40 mg 06/24/25 09:00 Pantoprazole 40 Mg Tablet PO 07/24/25 08:59 QDAY JOHNATHAN Sennosides 1 tab 06/22/25 09:00 06/23/25 08:08 Senna Tablet PO 07/22/25 08:59 Not Given QDAY JOHNATHAN Protocol Sildenafil Citrate 20 mg 06/21/25 22:00 06/23/25 05:12 Sildenafil Cit 20 Mg Tablet (Non-Formulary) PO 07/21/25 21:59 20 mg TID JOHNATHAN Administration Sodium Chloride 3 ml 06/22/25 15:15 Sodium Chloride Rt Lindsay 0.9% 3 Ml Nebu INH 07/22/25 15:14 PRN PRN SOLN Plan 40-year-old female with past medical history of pulmonary hypertension, COPD , hx of 35 pack smoking hxs, history of methamphetamine use was admitted for acute on chronic hypoxic respiratory failure secondary due to CHF exacerbation versus COPD exacerbation in the setting of pneumonia as well as Non STEMI. Cardiology was consulted for further recommendations 1. Acute on chronic hypoxic respiratory failure 2. Severe pulmonary hypertension grade III/type III 3. Right heart failure 4. [id number] type II demand ischemia 5. COPD exacerbation 6. Methamphetamine use 7. Pneumonia. 8. ALTHEA ECHO:2021 CONCLUSIONS Indication: Pulmonary HTN Severe PAH with estinated RVSP is 75 mmHg, including RAP. Evidence of RV pressure and volume overload noted ( D shaped LV in systole and diastole). Severely dilated RV with normal function. LV small size with normal function. Estimated EF is 65-70%. Severely dilated right atrium. Moderate to Severe TR. Mild MR. Acute hypoxic respiratory failure failure likely multifactorial due to combination of the COPD exacerbation, pneumonia and pulmonary hypertension. Patient has a history of severe pulmonary hypertension seen on echo in 2021, RVSP of 75%, right ventricular strain, decreased left ventricular size this may contribute to her ongoing hypoxic respiratory failure. Labs revealed BNP of 402, suggesting heart failure exacerbation. Troponin is slightly elevated initially 0.227, now 0.196. Given the clinical picture it is more likely a non-STEMI type II demand ischemia in the setting of hypoxia and respiratory failure. There were no acute ST changes on EKG and patient presentation does not suggest MT. Patient also has a history of methamphetamine use, which can exacerbate both the pulmonary hypertension and cardiac issues. CTA was negative for PE Recommendations Continue underlying COPD exacerbation treatment, pneumonia treatment with antibiotics, support with oxygen Sildenafil 20 mg 3 times daily continue as per current regimen to manage pulmonary hypertension Switched from Lasix 40 mg twice daily to 40 mg daily, manage fluid overload. Fluid restriction, daily weight, strict AMBER's Troponin already down trended, no EKG changes, continue to monitor on telemetry. Extensive counseled patient regarding side effects of methamphetamine dependence The patient will require close follow-up with a residue furnace operator?PAH clinic for ongoing management of her severe pulmonary hypertension. Patient apparently does follow-up with pulmonary hypertension clinic in [place] but does not remember the doctor's name and apparently starts with B. Patient recommended to continue with her sildenafil and follow-up with PAH clinic and her doctor regularly. Patient counseled extensively about meth abuse she says that she did relapse and actually quit for the past year or so. Discussed with the patient the importance to continue to quit methamphetamine smoking or any kind of alcohol abuse for her to be eligible for any kind of advanced heart therapies given her severe PAH. Continue IV diuresis for now. Strict output, daily weights and 2 g sodium diet. Echocardiogram ordered and will follow-up with results. Emphasized on importance of compliance to the medications. Oxygen support should continue as indicated, and respiratory function should be regularly monitored to assess the patient?s oxygenation status. Patient care was discussed with attending physician Dr. Mac Hanson MD PGY-1 Attending Provider Attestation/Addendum I have personally seen and examined the patient separately on the above date of service and discussed the plan of care with the resident. I reviewed the resident Dr. Grey Hanson consultation progress note and agree with the resident findings and plan in the note above and have also edited the documentation to reflect my findings and plan. Nish Watts M.D. Interventional Cardiology
--- NOTE | 2025-06-23 13:55 | PC.SS ---
Devulcanizer Operator (HUMZA Dinero met with the patient and at bedside to complete an initial assessment and discuss a discharge plan. Patient is alert and oriented to person, place, time, and situation, and provided verbal consent to participate in the assessment with at bedside. The patient has a past medical history of pulmonary hypertension, asthma/COPD, and methamphetamine use, who presented to [facility] emergency department with a chief complaint of shortness of breath and difficulty breathing for the last 3 days. Patient is Autumn Dillard, 40 y/o [place]itanian-speaking female residing with at [address] [place] [address]. Patient designated her , Hesham Rivera, , as her surrogate medical decision maker. Patient reports baseline is independent; patient uses oxygen at home. Patient's PCP is at [facility]. Patient's discharge plan is home; to provide private transportation. The patient was educated on drug cessation and provided with outpatient resources. Surrogate medical decision maker: , Hesham, Discharge plan: Home, private transportation Discharge rounds: On IV Lasix, Pending ECHO read.
--- NOTE | 2025-06-23 14:32 | ESPR_ITS ---
<Statement entered by Doroteo Mei MD - 06/23/25 17:37> Patient seen and examined at bedside. I discussed and supervised with the intelligence intern physician who took care of this patient. I personally saw and examined the patient. I agree with most of the assessment and plan. Patient on room air. Pending echo read and cardiology recommendation, anticipate discharge tomorrow. Plan of care discussed with attending Dr. Crawford. Doroteo Mei MD PGY-2 Documentation for date of: 06/23/25 Subjective Subjective Interval history: Patient was seen and examined at bedside. No acute events took place overnight. Patient denies fevers, palpitations, chest pain, shortness of breath and difficulty breathing. Patient satting well on O2 1 L via NC. Patient states that she uses supplemental oxygen 3 L via NC at home. Patient admits to drug use. Patient eager to be discharged after completion of echo study and interpretation. Blood cultures negative after 48 hours, MRSA negative, sputum 1+ GPC likely contamination pending sputum culture. Anticipate discharge within the next 24 hours upon availability of the echo interpretation. Exam Vital Signs Temp Pulse Resp BP Pulse Ox O2 Del Method O2 Flow Rate 97.0 F 107 H 17 115/64 97 Nasal Cannula 2 06/23/25 12:00 06/23/25 12:11 06/23/25 12:11 06/23/25 12:00 06/23/25 12:11 06/23/25 12:00 06/23/25 12:11 FiO2 45 06/23/25 04:00 Narrative Exam General: Awake and in no acute distress. Nods to questions, currently on BiPAP. HEENT: Normocephalic, atraumatic, mucous membranes moist. Heart: Regular rate and rhythm, no murmurs. Lungs: Mild bilateral wheezing Abdomen: Soft, nondistended, nontender, positive bowel sounds. ?No guarding or rebound tenderness. Neurologic: Alert and oriented x3, no gross neurological deficit, and patient able to move all 4 extremities. Extremities: 2+ bilateral lower extremity edema Skin: No rash or ecchymoses. Objective Labs 06/23/25 15:41 06/23/25 15:41 Quality Measures Quality Measures VTE prophylaxis Assessment & Plan Assessment Current Active Medications: Generic Name Dose Route Start Last Admin Trade Name Ashvinq PRN Reason Stop Dose Admin Acetaminophen 650 mg 06/21/25 16:29 Acetaminophen 325 Mg Tablet PO 07/21/25 16:28 Q6H PRN Fever >100.4, Pain 1-3 Albuterol/Ipratropium 3 ml 06/21/25 16:29 Albuterol/Ipratropium (Duoneb) Rt Lindsay 3 Ml Nebu INH 07/21/25 16:28 Q2HR PRN SHORTNESS OF BREATH OR WHEEZE Furosemide 40 mg 06/23/25 09:00 06/23/25 08:08 Furosemide Inj 10 Mg/Ml 4ml Vial IVP 07/23/25 08:59 40 mg QDAY JOHNATHAN Administration Heparin Sodium (Porcine) 5,000 unit 06/22/25 17:30 06/23/25 08:10 Heparin Sod Inj 5000 Unit/Ml Vial SC 07/06/25 17:29 5,000 unit Q12HR JOHNATHAN Administration Ipratropium [place] 0.5 mg 06/22/25 19:00 06/23/25 12:11 Ipratropium Rt 0.5 Mg/ 2.5 Ml Nebu INH 07/22/25 18:59 0.5 mg Q6HRRT JOHNATHAN Administration Levalbuterol HCl 1.25 mg 06/22/25 19:00 06/23/25 12:11 Levalbuterol Rt 1.25 Mg/0.5 Ml Nebu INH 07/22/25 18:59 1.25 mg Q6HRRT JOHNATHAN Administration Ondansetron HCl 4 mg 06/21/25 16:29 Ondansetron Inj 2 Mg/Ml Inj 2 Ml IVP 07/21/25 16:28 Q6H PRN NAUSEA OR VOMITING Protocol Pantoprazole Sodium 40 mg 06/24/25 09:00 Pantoprazole 40 Mg Tablet PO 07/24/25 08:59 QDAY JOHNATHAN Sennosides 1 tab 06/22/25 09:00 06/23/25 08:08 Senna Tablet PO 07/22/25 08:59 Not Given QDAY JOHNATHAN Protocol Sildenafil Citrate 20 mg 06/21/25 22:00 06/23/25 13:36 Sildenafil Cit 20 Mg Tablet (Non-Formulary) PO 07/21/25 21:59 20 mg TID JOHNATHAN Administration Sodium Chloride 3 ml 06/22/25 15:15 Sodium Chloride Rt Lindsay 0.9% 3 Ml Nebu INH 07/22/25 15:14 PRN PRN SOLN Plan Summary: Ms. Wahl is a 40-year-old female with past medical history of pulmonary hypertension, asthma/COPD and methamphetamine use who presented to [facility] emergency department with a chief complaint of shortness of breath and difficulty breathing for the last 3 days. Patient admitted for CHF exacerbation, COPD exacerbation and pneumonia. #Acute on chronic hypoxic respiratory failure #Severe pulmonary hypertension, CHF exacerbation #COPD exacerbation, less likely 40-year-old female with past medical history of pulmonary hypertension, COPD, methamphetamine use presented with shortness of breath. Past echo shows RVSP 75, with D sign and decreased LV size, patient reports she follows up with a automatic bandsaw tender in [place]. Patient on BiPAP currently, limited history. Troponin on presentation elevated at 0.227, down trended down to 0.196, BNP 402 Does have bilateral wheezing, on and off smoker stopped a month ago, uses inhalers at home. Chest x-ray does show possible right lower lung pneumonia Patient received sildenafil in ED, Lasix 40 IV x 1 Flu A & B negative. D-dimer negative (PE rule out). CTA negative for thoracic aortic aneurysmal dilatation or dissection, negative for pulmonary artery emboli. After discussion with team, discontinued methylprednisolone as patient's dyspnea is likely secondary to acute decompensation of chronic heart failure. - Blood cultures negative in 2/2 bottles after 48 hours. MRSA negative. - Chest CTA was negative for pneumonia or pulmonary edema. As a result, discontinued IV ceftriaxone and doxycycline (06/21- 06/22). Plan: - DuoNebs every 4 hours, DuoNebs every 2 hours as needed, - follow sputum culture - Switched from Lasix 40mg bid to once a day. - Pending echocardiogram interpretation by cardiology - Ordered CTA to rule out PE - Cardiology consulted, appreciate recommendations - The patient will require close follow-up with a annual giving director for ongoing management of her severe pulmonary hypertension. Referral to a PH Center is recommended for specialized care and treatment of her pulmonary hypertension. - Sildenafil 20 mg 3 times daily to manage pulmonary hypertension #NSTEMI type II versus type I Troponin downtrended already likely NSTEMI type II, EKG did show right atrial enlargement and sinus tachycardia no acute ST-T changes #Methamphetamine dependence Urine drug screen positive for methamphetamine, advised to avoid drugs #ALTHEA, resolved Baseline creatinine 0.9, creatinine on presentation 1.2, downtrended subsequently. Suspected cardiorenal syndrome. - Continue Lasix for now - Follow renal function in a.m. DVT prophylaxis: Heparin every 8 hours GI prophylaxis: IV Protonix Diet: cardiac Lines: Peripheral IV Code status: DNR/DNI?confirmed with nurse at bedside This case was discussed with my attending physician, Dr. Crawford, and senior resident, Dr Mei. Even though this this note was carefully revised there may still be minor errors in vascular technologist sonographer due to voice recognition software. Alyssa Mendenhall DO PGY I Attending Provider Attestation/Addendum I have discussed and was present for the essential components of the history, physical examination, diagnosis, and treatment plan with the resident. I agree with the patient's care as documented by the resident and amended herein by me. Everette Crawford DO. Although this document has been carefully reviewed, there may still be some phonetic and other typographical errors. These errors are purely grammatical due to imperfections in the software program and should not be construed in any way to compromise the substance of the patient's medical care during this visit. Patient seen and evaluated this AM. No acute events overnight, vital signs stable, patient afebrile, patient presented for acute hypoxic respiratory failure likely secondary to worsening PAH versus CHF exacerbation, patient also demonstrated NSTEMI type II, she was intoxicated with methamphetamines and presented with ALTHEA which is resolved. We are pending an echo read, cardiology is consulted, patient will need outpatient follow-up with a annual giving director, and preferably a specialist center for pulmonary hypertension, we also emphasized the need for medication compliance and the absolute need for methamphetamine cessation, she stated she understood. She is presently on Lasix 40 mg p.o. daily, Protonix and sildenafil, will continue to monitor closely, likely DC later today or tomorrow pending echo read and final cardiology recommendations.
[2025-06-23 16:02] LABS: Basophils # (Auto) 0.0 Thou/mm3 (0.0-0.2); Basophils % (Auto) 0 % (0-2.5); Eosinophils # (Auto) 0.1 Thou/mm3 (0.0-0.5); Eosinophils % (Auto) 2 % (0-10); Hematocrit 41.4 % (36.0-46.0); Hemoglobin 13.3 g/dL (12.0-16.0); Immature Granulocytes Auto 0.02 Thou/mm3 (0.00-0.00); Lymphocytes # (Auto) 2.0 Thou/mm3 (1.0-4.8); Lymphocytes % (Auto) 28 % (10-50); Mean Corpuscular HGB Conc 32.1 g/dl (31.0-37.0); Mean Corpuscular Hemoglobin 31.0 pg (25.0-35.0); Mean Corpuscular Volume 97 fL (80-100); Monocytes # (Auto) 0.5 Thou/mm3 (0.0-0.8); Monocytes % (Auto) 7 % (0-12); Neutrophils # (Auto) 4.5 Thou/mm3 (1.8-7.7); Neutrophils % (Auto) 62 % (37-80); Nucleated Red Blood Cell # 0.00 Thou/mm3 (0.00-0.00); Nucleated Red Blood Cell % 0 /100 WBC (0); Platelet Count 174 Thou/mm3 (140-440); RDW Standard Deviation 50.4 fL (36.4-46.3); Red Blood Count 4.29 Miln/mm3 (4.00-5.20); White Blood Count 7.2 Thou/mm3 (3.6-11.0)
[2025-06-23 16:34] LABS: Alanine Aminotransferase 9 U/L (10-49); Albumin, Serum 4.5 gm/dL (3.5-5.0); Albumin/Globulin Ratio 1.6 (1.2-2.2); Alkaline Phosphatase 54 U/L (46-116); Anion Gap 7 (7-16); Aspartate Amino Transferase 13 U/L (0-34); BUN/Creatinine Ratio 13 Ratio (12-20); Bilirubin,Total 0.3 mg/dL (0.3-1.2); Blood Urea Nitrogen 14 mg/dL (9-23); Calcium 9.4 mg/dL (8.3-10.6); Calcium (Corrected) 9.4 mg/dL (8.5-10.1); Carbon Dioxide 32.1 mMol/L (20.0-31.0); Chloride 106 mMol/L (98-107); Creatinine (Component) 1.1 mg/dL (0.6-1.3); Estimated Creatinine Clearance 62.2 mL/min (>60); Globulin 2.8 gm/dL (2.3-3.5); Glucose 81 mg/dL (74-106); Magnesium 1.8 mg/dL (1.6-2.6); Osmolality,Calculated 288 (275-295); Phosphorous 3.2 mg/dL (2.4-5.1); Potassium 3.8 mMol/L (3.4-5.1); Sodium 145 mMol/L (136-145); Total Protein 7.3 gm/dL (5.7-8.2); eGFR > 60 See Note
[2025-06-24] VITALS (8 sets, daily range): BP systolic 101–118; BP diastolic 70–79; PULSE 95–107; RESP 18–20; TEMP 36.3–36.9; O2SAT 95–98; BMI 31.1
[2025-06-24] MEDS: LEVALBUTEROL RT 1.25 MG/0.5 ML NEBU INH ×2 (01:32→06:51)
[2025-06-24] MEDS: IPRATROPIUM RT 0.5 MG/ 2.5 ML NEBU INH ×2 (01:32→06:51)
[2025-06-24] MEDS: FUROSEMIDE INJ 10 MG/ML 4ML VIAL 40 MG IVP (08:07)
[2025-06-24] MEDS: HEPARIN SOD INJ 5000 UNIT/ML VIAL SC (08:07)
[2025-06-24] MEDS: PANTOPRAZOLE 40 MG TABLET PO (08:08)
--- NOTE | 2025-06-24 08:32 | ESPR_ITS ---
Documentation for date of: 06/24/25 Subjective Subjective Interval history: 40-year-old female with past medical history of pulmonary hypertension, asthma/COPD, on home oxygen, history of methamphetamine abuse, presented to the to [facility] on 06/21/2025 with chief complaints of shortness of breath. Patient stated that symptoms started about 3 days ago, and was progressively getting worse. Patient stated that she was out to [facility] with her boyfriend/ when she suddenly developed dyspnea, and was having trouble to catch her breath. Patient denied any nausea, palpitation, chest pain, or any other symptoms. Patient has a chronic longstanding COPD, with more than 35-year pack smoking history, has severe pulmonary hypertension grade 3 in the setting of underlying COPD, and using oxygen at home. Patient stated that about a month ago she has not been feeling herself, recently had some kind of upper respiratory infection, however symptoms at 1 point subsided and she never followed up with doctor. Patient is taking Lasix along with sildenafil at home for pulmonary hypertension. On daily basis denies any chest pain, shortness of breath, palpitation, or any other associated symptoms. On presentation patient found to be tachypneic, tachycardic, and saturating low 90s, troponin was found to be elevated and patient was admitted for acute hypoxic respiratory failure secondary due to COPD exacerbation in the setting of underlying pneumonia as well as non-STEMI demand ischemia due to right heart failure. ED course: ED vitals: Vitals on presentation blood pressure 111/72, heart rate 114, respiratory rate 38, temp 98.8, O2 sat 90 on 3 L nasal cannula, patient started on BiPAP after. ED labs: On presentation WBC 9.2 hemoglobin 13.2, MCV 96 MCH 32.2 MCH platelet 168. INR 1.0 APTT 26.6: Sodium 146 potassium 3.4 chloride 107 anion gap 12 BUN 12 creatinine 1.2 GFR 58 calcium 9.3 magnesium 1.8 liver panel unremarkable troponin elevated at 0.227, BNP 402 TSH free T4 within normal limits: Urinalysis positive for 1+ blood n shows rare bacteria urine tox positive for methamphetamine, COVID-negative ED imaging: Chest x-ray shows right lower lung pneumonia, suspicious for pulmonary arterial hypertension EKG shows sinus tachycardia, right atrial enlargement and incomplete right bundle branch block. ED treatment: Patient was given breathing treatment 3 mL inhalational x 1, 40 mg IV Lasix, methylprednisolone 80 mg IV x 1 ceftriaxone 2 g x 1 doxycycline 100 mg x 1 and sildenafil 20 mg. Patient started on BiPAP Past medical history as above Past surgical history appendectomy, eye surgery Allergies promethazine, propoxyphene Medication Lasix 40 mg daily, sildenafil, Ambrisentan, albuterol, home oxygen as needed Family history patient denies any heart disease in the family. Negative for hypertension, diabetes and heart attack Social history patient smoking since age of 14, 1 pack/day, last cigarette per patient was about a year ago. Patient also admits using street drugs including methamphetamine, IV drug, cocaine, however stated that about a year she has been sober, UTOX is positive for amphetamine. 06/23/2025: Patient was seen and examined at bedside. She is doing well and denies any complaints of chest pain, palpitations, leg swelling. She endorses that her SOB is improving. Continue the same management and follow-up with the cement mason helper for her pulmonary hypertension. Potassium 3.4, magnesium 1.6 on today labs. Overnight night fluid balance+840 ml. 06/24/2025:Labs reviewed and patient examined at the bedside. Patient lies comfortably on bed without any complaints. During hospital stay, continue Sidenafil and Lasix 40mg qd. On discharge, Tadalafil for pulmonary HTN and follow up with cardiology within 1 week. Exam Vital Signs Temp Pulse Resp BP Pulse Ox O2 Del Method O2 Flow Rate 97.3 F 98 18 118/71 96 Nasal Cannula 1 06/24/25 07:57 06/24/25 08:07 06/24/25 07:57 06/24/25 08:07 06/24/25 07:57 06/24/25 07:57 06/24/25 07:57 FiO2 45 06/23/25 04:00 Narrative Exam General: Awake and in no acute distress. Nods to questions, currently on BiPAP. HEENT: Normocephalic, atraumatic, mucous membranes moist. Heart: Regular rate and rhythm, no murmurs. Lungs: Mild bilateral wheezing Abdomen: Soft, nondistended, nontender, positive bowel sounds. ?No guarding or rebound tenderness. Neurologic: Alert and oriented x3, no gross neurological deficit, and patient able to move all 4 extremities. Extremities: Trace bilateral lower extremity edema Skin: No rash or ecchymoses. Objective Labs 06/23/25 15:41 06/23/25 15:41 Labs: Laboratory Results - last 24 hr 06/23/25 15:41 WBC 7.2 RBC 4.29 Hgb 13.3 Hct 41.4 MCV 97 MCH 31.0 MCHC 32.1 RDW Std Deviation 50.4 H Plt Count 174 Neut % (Auto) 62 Lymph % (Auto) 28 [place] % (Auto) 7 Eos % (Auto) 2 Baso % (Auto) 0 Neut # (Auto) 4.5 Lymph # (Auto) 2.0 [place] # (Auto) 0.5 Eos # (Auto) 0.1 Baso # (Auto) 0.0 Immature Gran # (Auto) 0.02 H Absolute Nucleated RBC 0.00 Immature Gran % 0 Nucleated RBC % 0 Sodium 145 Potassium 3.8 Chloride 106 Carbon Dioxide 32.1 H Anion Gap 7 BUN 14 Creatinine 1.1 Estim Creat Clear Calc 62.2 eGFR > 60 BUN/Creatinine Ratio 13 Glucose 81 Calculated Osmolality 288 Calcium 9.4 Corrected Calcium 9.4 Phosphorus 3.2 Magnesium 1.8 Total Bilirubin 0.3 AST 13 ALT 9 L Alkaline Phosphatase 54 Total Protein 7.3 Albumin 4.5 Globulin 2.8 Albumin/Globulin Ratio 1.6 Quality Measures Quality Measures VTE prophylaxis Assessment & Plan Assessment Current Active Medications: Generic Name Dose Route Start Last Admin Trade Name Freq PRN Reason Stop Dose Admin Acetaminophen 650 mg 06/21/25 16:29 Acetaminophen 325 Mg Tablet PO 07/21/25 16:28 Q6H PRN Fever >100.4, Pain 1-3 Albuterol/Ipratropium 3 ml 06/21/25 16:29 Albuterol/Ipratropium (Duoneb) Rt Lindsay 3 Ml Nebu INH 07/21/25 16:28 Q2HR PRN SHORTNESS OF BREATH OR WHEEZE Furosemide 40 mg 06/23/25 09:00 06/24/25 08:07 Furosemide Inj 10 Mg/Ml 4ml Vial IVP 07/23/25 08:59 40 mg QDAY JOHNATHAN Administration Heparin Sodium (Porcine) 5,000 unit 06/22/25 17:30 06/24/25 08:07 Heparin Sod Inj 5000 Unit/Ml Vial SC 07/06/25 17:29 5,000 unit Q12HR JOHNATHAN Administration Ipratropium [place] 0.5 mg 06/22/25 19:00 06/24/25 06:51 Ipratropium Rt 0.5 Mg/ 2.5 Ml Nebu INH 07/22/25 18:59 0.5 mg Q6HRRT JOHNATHAN Administration Levalbuterol HCl 1.25 mg 06/22/25 19:00 06/24/25 06:51 Levalbuterol Rt 1.25 Mg/0.5 Ml Nebu INH 07/22/25 18:59 1.25 mg Q6HRRT JOHNATHAN Administration Ondansetron HCl 4 mg 06/21/25 16:29 Ondansetron Inj 2 Mg/Ml Inj 2 Ml IVP 07/21/25 16:28 Q6H PRN NAUSEA OR VOMITING Protocol Pantoprazole Sodium 40 mg 06/24/25 09:00 06/24/25 08:08 Pantoprazole 40 Mg Tablet PO 07/24/25 08:59 40 mg QDAY JOHNATHAN Administration Sennosides 1 tab 06/22/25 09:00 06/24/25 08:08 Senna Tablet PO 07/22/25 08:59 Not Given QDAY JOHNATHAN Protocol Sildenafil Citrate 20 mg 06/21/25 22:00 06/24/25 05:35 Sildenafil Cit 20 Mg Tablet (Non-Formulary) PO 07/21/25 21:59 20 mg TID JOHNATHAN Administration Sodium Chloride 3 ml 06/22/25 15:15 Sodium Chloride Rt Lindsay 0.9% 3 Ml Nebu INH 07/22/25 15:14 PRN PRN SOLN Plan 40-year-old female with past medical history of pulmonary hypertension, COPD , hx of 35 pack smoking hxs, history of methamphetamine use was admitted for acute on chronic hypoxic respiratory failure secondary due to CHF exacerbation versus COPD exacerbation in the setting of pneumonia as well as Non STEMI. Cardiology was consulted for further recommendations 1. Acute on chronic hypoxic respiratory failure 2. Severe pulmonary hypertension grade III/type III 3. Right heart failure 4. Jhi-ZPDUH-skwzrd type II demand ischemia 5. COPD exacerbation 6. Methamphetamine use 7. Pneumonia. 8. ALTHEA ECHO:2021 CONCLUSIONS Indication: Pulmonary HTN Severe PAH with estinated RVSP is 75 mmHg, including RAP. Evidence of RV pressure and volume overload noted ( D shaped LV in systole and diastole). Severely dilated RV with normal function. LV small size with normal function. Estimated EF is 65-70%. Severely dilated right atrium. Moderate to Severe TR. Mild MR. Acute hypoxic respiratory failure failure likely multifactorial due to combination of the COPD exacerbation, pneumonia and pulmonary hypertension. Patient has a history of severe pulmonary hypertension seen on echo in 2021, RVSP of 75%, right ventricular strain, decreased left ventricular size this may contribute to her ongoing hypoxic respiratory failure. Labs revealed BNP of 402, suggesting heart failure exacerbation. Troponin is slightly elevated initially 0.227, now 0.196. Given the clinical picture it is more likely a non-STEMI type II demand ischemia in the setting of hypoxia and respiratory failure. There were no acute ST changes on EKG and patient presentation does not suggest CT. Patient also has a history of methamphetamine use, which can exacerbate both the pulmonary hypertension and cardiac issues. CTA was negative for PE Recommendations Continue underlying COPD exacerbation treatment, pneumonia treatment with antibiotics, support with oxygen Sildenafil 20 mg 3 times daily continue as per current regimen to manage pulmonary hypertension Switched from Lasix 40 mg twice daily to 40 mg daily, manage fluid overload. Fluid restriction, daily weight, strict AMBER's Troponin already down trended, no EKG changes, continue to monitor on telemetry. Extensive counseled patient regarding side effects of methamphetamine dependence The patient will require close follow-up with a cement mason helper?PAH clinic for ongoing management of her severe pulmonary hypertension. Patient apparently does follow-up with pulmonary hypertension clinic in [place] but does not remember the doctor's name and apparently starts with B. Patient recommended to continue with her sildenafil and follow-up with PAH clinic and her doctor regularly. Patient counseled extensively about meth abuse she says that she did relapse and actually quit for the past year or so. Discussed with the patient the importance to continue to quit methamphetamine smoking or any kind of alcohol abuse for her to be eligible for any kind of advanced heart therapies given her severe PAH. Continue IV diuresis for now. Strict output, daily weights and 2 g sodium diet. Echocardiogram ordered and will follow-up with results. Emphasized on importance of compliance to the medications. Oxygen support should continue as indicated, and respiratory function should be regularly monitored to assess the patient?s oxygenation status. During hospital stay, continue Sidenafil and Lasix 40mg qd. On discharge, Tadalafil 40mg po qd for pulmonary HTN and follow up with her pulmonary hypertension specialist in [place] within 1 week. Assessment and plan discussed with my attending physician Dr. Pelaez (PGY-1) - Internal medicine resident Attending Provider Attestation/Addendum I have personally seen and examined the patient separately on the above date of service and discussed the plan of care with the resident. I reviewed the resident Dr. Linwood Pelaez consultation progress note and agree with the resident findings and plan in the note above and have also edited the documentation to reflect my findings and plan. Nish Watts M.D. Interventional Cardiology
--- NOTE | 2025-06-24 14:26 | ESDS_ITS ---
Planned Discharge Date 06/24/25 DS: Providers Provider Date of admission: 06/21/25 16:29 Primary care physician: Physician No Primary/Family Admitting Provider: Dominic Don MD Attending Provider on Admission: Dominic Don MD Consults: 06/21/25 16:35 Consult to Cardiology Stat Comment: CHF, PH Consulting Provider: Nish Watts Attending Provider on DC: Dominic Don MD Discharging Provider: Alyssa Mendenhall DO DS: Diagnosis Problem List Completed Was Problem List Reviewed/Reconciled?: Yes Hospital Course Status at Discharge Cognitive/behavioral status at discharge: Ms. Wahl is a 40-year-old female with past medical history of pulmonary hypertension, asthma/COPD and methamphetamine use who presented to [facility] emergency department on 06/21/2025 with a chief complaint of shortness of breath and difficulty breathing for the last 3 days. Patient admitted for CHF exacerbation, COPD exacerbation and pneumonia. Vitals on presentation BP 111/72, HR 114, respiratory rate 38, T 98.8, O2 sat 90 on 3 L NC, patient started on BiPAP after. Labs showed WBC 9.2, Hgb 13.2, INR 1.0, APTT 26.6. UA positive for 1+ blood and rare bacteria. EKG showed right atrial enlargement and sinus tachycardia, no acute ST-T changes. troponin elevated at 0.227 on presentation, which downtrended to 0.196. BNP 402. NSTEMI type II. UDS positive for methamphetamine. Past echo had shown RVSP 75, with the side and decreased LV size. Patient did have bilateral wheezing on physical exam, and CXR showed possible right lower lung pneumonia. Influenza A, B, and COVID-19 negative. D-dimer negative, and CTA negative for thoracic aortic aneurysm dilatation or dissection, also negative for pulmonary artery emboli. Initiated treatment with DuoNebs every 4 hours, and DuoNebs every 2 hours as needed. Patient was started on IV ceftriaxone and doxycycline. Cardiology consulted. Started diuresis with Lasix 40 mg twice daily with good urine output. Patient oxygen requirements improved from BiPAP to OxyMask and later to nasal cannula weaned to 1 L. Patient was treated with sildenafil 20 mg 3 times daily for the management of her chronic pulmonary hypertension. Chest CTA came back negative for pneumonia or pulmonary edema. As a result discontinued IV antibiotics. Echocardiogram study which was interpreted by cardiology on June 24 showed left ventricular size to be decreased, but systolic function normal. Ejection fraction estimated 60 to 65%. Grade 1 diastolic dysfunction. Right ventricular chamber size to be severely enlarged with normal systolic function. Estimated RVSP 56 mmHg. At least moderate PAH. At the time of discharge, patient is medically stable and deemed safe to return to his/her previous state of living. Admission diagnosis: #Acute on chronic hypoxic respiratory failure #Severe pulmonary hypertension, CHF exacerbation #COPD exacerbation, less likely #NSTEMI type II versus type I #Methamphetamine dependence #ALTHEA, resolved Discharge instructions: ? You have been started on tadalafil for your pulmonary hypertension. ? Continue the rest of your home medication as before ? We strongly recommend he follow-up with a defense travel administrator as outpatient. See your primary care doctor for a referral. ? Follow-up with cardiology within 1 week of discharge. - Follow up with your primary care physician within 1 week of discharge. If you do not have a primary care physician, please follow up with the [facility] Residents clinic ([phone]) ? If you experience any new, worsening or persistent symptoms either call your primary doctor, or dial 911 or present to the emergency department. This case was discussed with my attending physician, Dr. Don, and senior resident, Dr Pepe Even though this this note was carefully revised there may still be minor errors in assistant portfolio manager due to voice recognition software. Alyssa Mendenhall, DO PGY I Senior Resident Attestation: I discussed with and supervised the administration intern physician involved in the care of this patient. I personally saw and examined the patient and discussed the assessment and plan with the entire medicine team, including my attending. I agree with the discharge plan. Malachi Pepe MD PGY3 Internal Medicine Time Spent with Patient Time attestation: Total time spent providing and/or coordinating discharge services: More than 50% of the patient's total hospital stay Time spent: Greater than 30 minutes Exam Vital Signs Temp Pulse Resp BP Pulse Ox O2 Del Method O2 Flow Rate 97.5 F 96 19 101/73 95 Room Air 1 06/24/25 12:00 06/24/25 12:00 06/24/25 12:00 06/24/25 12:00 06/24/25 12:00 06/24/25 12:00 06/24/25 07:57 FiO2 45 06/23/25 04:00 Narrative Exam General: Awake and in no acute distress. Nods to questions, currently on BiPAP. HEENT: Normocephalic, atraumatic, mucous membranes moist. Heart: Regular rate and rhythm, no murmurs. Lungs: Mild bilateral wheezing Abdomen: Soft, nondistended, nontender, positive bowel sounds. ?No guarding or rebound tenderness. Neurologic: Alert and oriented x3, no gross neurological deficit, and patient able to move all 4 extremities. Extremities: Trace bilateral lower extremity edema Skin: No rash or ecchymoses. Discharge Plan Plan Patient Disposition: HOME (Self Care) Care Plan Goals: ? You have been started on tadalafil for your pulmonary hypertension. ? Continue the rest of your home medication as before ? We strongly recommend he follow-up with a defense travel administrator as outpatient. See your primary care doctor for a referral. ? Follow-up with cardiology within 1 week of discharge. - Follow up with your primary care physician within 1 week of discharge. If you do not have a primary care physician, please follow up with the [facility] Residents clinic ([phone]) ? If you experience any new, worsening or persistent symptoms either call your primary doctor, or dial 911 or present to the emergency department. Prescriptions/Referrals Prescriptions/Med Rec: New pantoprazole 40 mg Tablet,Delayed Release (Dr/Ec) 40 mg PO QDAY 30 Days Qty: 30 0RF tadalafil (pulm. hypertension) [Adcirca] 20 mg tablet 40 mg PO QDAY 30 Days Qty: 60 3RF Continued ambrisentan 10 mg tablet 10 mg PO QDAY albuterol sulfate 90 mcg/actuation HFA aerosol inhaler 2 puff INHALATION Q6H PRN (Reason: shortness of breath or wheezing) Patient Comments: INHALE 2 PUFFS INTO THE LUNGS EVERY 6 HOURS NEEDED FOR 30 DAYS furosemide [Lasix] 40 mg tablet 40 mg PO QDAY Discontinued tadalafil (pulm. hypertension) 20 mg tablet 40 mg PO QDAY Referrals: [facility] [Outside] Nish Watts MD [Physician, Cardiology] No Primary/Family,Physician [Primary Care Provider] Patient/Caregiver Discharge Instructions Discharge Activity: activity as tolerated Education Materials: Pulmonary Hypertension Print Language: Hebrew Stand Alone Forms: Lorie Award Info., Patient Portal Info Letter Discharge Order Discharge Orders: Discharge (Routine); Ordered 06/24/25 Ordered By: Alyssa Mendenhall Quality Discharge Quality Measures VTE prophylaxis Attestestation Attestation I discussed with and supervised the resident physician who took care of this patient. I agree with the assessment and discharge plan as above. Patient should continue taking her medications as prescribed by her PAH specialist and will schedule follow-up soon. She will also follow-up with her shoe maker Dr. Velásquez. Risk for noncompliance discussed with this patient.
== END 2025-06-24 13:45 | disposition home or self-care (01) | DRG 194 ==
LOC: SERX 17:17 → SERHOLD 17:29 → S2NX 23:24
PROVIDERS: Nurse Practitioner Family; Admitting Provider Internal Medicine; Emergency Provider Emergency Medicine; Visit Provider Internal Medicine
DX: I11.0 Hypertensive heart disease with heart failure (principal); J18.9 Pneumonia, unspecified organism; J44.1 Chronic obstructive pulmonary disease with (acute) exacerbation; J96.21 Acute and chronic respiratory failure with hypoxia; I50.810 Right heart failure, unspecified; I27.21 Secondary pulmonary arterial hypertension; I21.A1 Myocardial infarction type 2; J44.0 Chronic obstructive pulmonary disease with (acute) lower respiratory infection; N17.9 Acute kidney failure, unspecified; Z66 Do not resuscitate; F15.229 Other stimulant dependence with intoxication, unspecified; F17.210 Nicotine dependence, cigarettes, uncomplicated; I50.9 Heart failure, unspecified; I07.1 Rheumatic tricuspid insufficiency; Z79.899 Other long term (current) drug therapy; Z90.49 Acquired absence of other specified parts of digestive tract; Z99.81 Dependence on supplemental oxygen; Z88.8 Allergy status to other drugs, medicaments and biological substances
CPT/HCPCS: 36415; 51702; 71045; 71275; 80053; 80307; 81001; 81025; 83735; 83880; 84100; 84439; 84443; 84484; 84703; 85025; 85379; 85610; 85730; 87040; 87081; 87205; 87502; 87811; 93005; 93306; 94640; 94660; 94664; 96365; 96366; 96375; 99285; A4314; A4649; A9270; J0696; J1644; J1938; J2470; J2919; J3475; J3490; J7050; Q9967